=== PATIENT | male | born 1945 | race Caucasian/White ===

== ENCOUNTER 2016-08-11 09:52 | Outpatient (CLI) | payer MEDICARE | END 2016-08-11 09:53 | disposition home or self-care (01) | DX: I73.9 Peripheral vascular disease, unspecified (principal); N18.9 Chronic kidney disease, unspecified; I48.0 Paroxysmal atrial fibrillation; E78.5 Hyperlipidemia, unspecified; E11.9 Type 2 diabetes mellitus without complications; E29.1 Testicular hypofunction; I12.9 Hypertensive chronic kidney disease with stage 1 through stage 4 chronic kidney disease, or unspecified chronic kidney disease ==

== ENCOUNTER 2016-09-15 08:00 | Outpatient (CLI) | payer MEDICARE | END 2016-09-15 23:59 | disposition home or self-care (01) | DX: Z12.5 Encounter for screening for malignant neoplasm of prostate (principal) ==

== ENCOUNTER 2017-01-04 09:05 | Outpatient (CLI) | payer MEDICARE | END 2017-01-04 09:06 | disposition home or self-care (01) | LOC: LAB.F 09:05 | PROVIDERS: ATTEND Family Medicine | DX: I48.0 Paroxysmal atrial fibrillation (principal); Z79.01 Long term (current) use of anticoagulants | CPT/HCPCS: 85610 ==

== ENCOUNTER 2017-02-25 09:38 | Outpatient (CLI) | payer MEDICARE | END 2017-02-25 09:39 | disposition home or self-care (01) | LOC: LAB.F 09:38 | PROVIDERS: ATTEND Family Medicine | DX: I48.0 Paroxysmal atrial fibrillation (principal); Z79.01 Long term (current) use of anticoagulants | CPT/HCPCS: 85610 ==

== ENCOUNTER 2017-04-01 10:51 | Outpatient (CLI) | payer MEDICARE | END 2017-04-01 10:52 | disposition home or self-care (01) | LOC: LAB.F 10:51 | PROVIDERS: ATTEND Physician Assistant Medical | DX: I48.0 Paroxysmal atrial fibrillation (principal); Z79.01 Long term (current) use of anticoagulants | CPT/HCPCS: 85610 ==

== ENCOUNTER 2017-04-29 10:58 | Outpatient (CLI) | payer MEDICARE | END 2017-04-29 10:59 | disposition home or self-care (01) | LOC: LAB.F 10:58 | PROVIDERS: ATTEND Physician Assistant Medical | DX: I48.0 Paroxysmal atrial fibrillation (principal); Z79.01 Long term (current) use of anticoagulants | CPT/HCPCS: 85610 ==

== ENCOUNTER 2017-05-06 13:37 | Outpatient (CLI) | payer MEDICARE | END 2017-05-06 13:38 | disposition home or self-care (01) | LOC: LAB.F 13:37 | PROVIDERS: ATTEND Physician Assistant Medical | DX: I48.0 Paroxysmal atrial fibrillation (principal); Z79.01 Long term (current) use of anticoagulants | CPT/HCPCS: 85610 ==

== ENCOUNTER 2017-07-02 13:53 | Outpatient (CLI) | payer MEDICARE | END 2017-07-02 13:54 | disposition home or self-care (01) | LOC: LAB.F 13:53 | PROVIDERS: ATTEND Family Medicine | DX: I48.91 Unspecified atrial fibrillation (principal); Z79.01 Long term (current) use of anticoagulants | CPT/HCPCS: 85610 ==

== ENCOUNTER 2017-07-22 10:38 | Outpatient (CLI) | payer MEDICARE | END 2017-07-22 10:39 | disposition home or self-care (01) | LOC: SC 10:38 | PROVIDERS: ATTEND Specialist | DX: G47.33 Obstructive sleep apnea (adult) (pediatric) (principal) | CPT/HCPCS: 99214; G0463; 99212 ==

== ENCOUNTER 2017-08-09 11:10 | Outpatient (CLI) | payer MEDICARE, OTHER ==
[2017-08-09 18:53] LABS: ALBUMIN 4.2 g/dL (3.2-5.5); ALBUMIN/GLOBULIN RATIO 1.7 (1.0-2.2); ALKALINE PHOSPHATASE 55 IU/L (42-121); ALT ALANINE AMINOTRANSFERASE 24 IU/L (10-60); AST ASPARTATE AMINOTRANSFERASE 21 IU/L (10-42); BILIRUBIN,TOTAL 0.6 mg/dL (0.2-1.0); BUN - BLOOD UREA NITROGEN 29 mg/dL (6-20); CALCIUM 8.6 mg/dL (8.5-10.3); CARBON DIOXIDE - CO2 23 mmol/L (21-32); CHLORIDE 104 mmol/L (101-111); CHOL/HDL RATIO 3.2 (<5.0); CHOLESTEROL 120 mg/dL; CREATININE 1.7 mg/dL (0.6-1.2); GFR - MDRD 40 (>89); GLUCOSE 80 mg/dL (70-100); HDL CHOLESTEROL 37 mg/dL; LDL CHOLESTEROL,CALCULATED 62 mg/dL; LDL/HDL RATIO 1.7 (<3.6); SODIUM 135 mmol/L (135-145); TOTAL PROTEIN 6.7 g/dL (6.7-8.2); VLDL CHOLESTEROL 21 mg/dL
[2017-08-09 18:59] LABS: BASOPHILS # (AUTO) 0.1 10^3/uL (0.0-0.1); BASOPHILS % (AUTO) 1.1 %; EOSINOPHILS # (AUTO) 0.1 10^3/uL (0.0-0.7); EOSINOPHILS % (AUTO) 1.8 %; LYMPHOCYTES # (AUTO) 1.8 10^3/uL (1.5-3.5); LYMPHOCYTES % (AUTO) 25.3 %; MEAN CORPUSCULAR HGB CONC 32.9 g/dL (32.0-36.0); MEAN CORPUSCULAR VOLUME 94.4 fL (80.0-94.0); MEAN PLATELET VOLUME 8.5 fL (7.4-11.4); MONOCYTES # (AUTO) 0.5 10^3/uL (0.0-1.0); MONOCYTES % (AUTO) 7.2 %; NEUTROPHILS # (AUTO) 4.7 10^3/uL (1.5-6.6); NEUTROPHILS % (AUTO) 64.6 %; PLT - PLATELET COUNT 263 10^3/uL (130-450); RED BLOOD COUNT 4.53 10^6/uL (4.70-6.10); WHITE BLOOD COUNT 7.2 x10^3/uL (4.8-10.8)
[2017-08-09 19:58] LABS: HB2 TOTAL 15.2 g/dL; HEMOGLOBIN A1C 0.8 g/dL
== END 2017-08-09 11:11 | disposition home or self-care (01) ==
LOC: LAB.F 11:10
PROVIDERS: ATTEND Physician Assistant Medical
DX: I48.0 Paroxysmal atrial fibrillation (principal); I10 Essential (primary) hypertension; E11.9 Type 2 diabetes mellitus without complications; Z79.01 Long term (current) use of anticoagulants; E78.5 Hyperlipidemia, unspecified; E29.1 Testicular hypofunction
CPT/HCPCS: 36415; 80053; 80061; 81599; 83036; 83721; 84402; 84403; 85025; 85610

== ENCOUNTER 2017-09-22 09:46 | Outpatient (CLI) | payer MEDICARE, OTHER | END 2017-09-22 09:47 | disposition home or self-care (01) | LOC: LAB.F 09:46 | PROVIDERS: ATTEND Physician Assistant Medical | DX: I48.0 Paroxysmal atrial fibrillation (principal); Z79.01 Long term (current) use of anticoagulants | CPT/HCPCS: 85610 ==

== ENCOUNTER 2017-09-28 08:00 | Outpatient (CLI) | payer MEDICARE, OTHER ==
[2017-09-29 10:41] LABS: ALBUMIN 4.5 g/dL (3.2-5.5); BILIRUBIN,TOTAL 0.8 mg/dL (0.2-1.0); CALCIUM 9.1 mg/dL (8.5-10.3); MAGNESIUM 2.1 mg/dL (1.7-2.8); TOTAL PROTEIN 6.8 g/dL (6.7-8.2)
[2017-09-29 10:56] LABS: THYROID STIMULATING HORMONE 1.09 uIU/mL (0.34-5.60)
[2017-09-29 10:58] LABS: FREE T4 (FREE THYROXINE) 1.32 ng/dL (0.58-1.64)
== END 2017-09-28 08:01 | disposition home or self-care (01) ==
LOC: LAB.F 08:00
PROVIDERS: ATTEND Physician Assistant Medical
DX: I10 Essential (primary) hypertension (principal); R25.1 Tremor, unspecified
CPT/HCPCS: 36415; 80053; 82728; 83735; 84439; 84443; 84481

== ENCOUNTER 2017-09-30 08:00 | Outpatient (CLI) | payer MEDICARE, OTHER | END 2017-09-30 23:59 | disposition home or self-care (01) | LOC: LAB.R 08:00 | PROVIDERS: ATTEND Physician Assistant Medical | DX: L03.031 Cellulitis of right toe (principal) | CPT/HCPCS: 87070; 87205 ==

== ENCOUNTER 2017-10-28 11:03 | Outpatient (CLI) | payer MEDICARE, OTHER | END 2017-10-28 11:04 | disposition home or self-care (01) | LOC: LAB.F 11:03 | PROVIDERS: ATTEND Physician Assistant Medical | DX: I48.0 Paroxysmal atrial fibrillation (principal); Z79.01 Long term (current) use of anticoagulants | CPT/HCPCS: 85610 ==

== ENCOUNTER 2017-11-10 12:41 | Outpatient (CLI) | payer MEDICARE, OTHER | END 2017-11-10 12:42 | disposition home or self-care (01) | LOC: LAB.F 12:41 | PROVIDERS: ATTEND Physician Assistant Medical | DX: I48.0 Paroxysmal atrial fibrillation (principal); Z79.01 Long term (current) use of anticoagulants | CPT/HCPCS: 85610 ==

== ENCOUNTER 2017-12-08 14:18 | Outpatient (CLI) | payer MEDICARE, OTHER | END 2017-12-08 14:19 | disposition home or self-care (01) | LOC: LAB.F 14:18 | PROVIDERS: ATTEND Physician Assistant Medical | DX: I48.0 Paroxysmal atrial fibrillation (principal); Z79.01 Long term (current) use of anticoagulants | CPT/HCPCS: 85610 ==

== ENCOUNTER 2017-12-29 08:00 | Outpatient (CLI) | payer MEDICARE, OTHER | END 2017-12-29 08:01 | LOC: LAB.F 08:00 | PROVIDERS: ATTEND Internal Medicine | DX: I48.0 Paroxysmal atrial fibrillation (principal); Z79.01 Long term (current) use of anticoagulants | CPT/HCPCS: 85610 ==

== ENCOUNTER 2018-02-07 11:56 | Outpatient (CLI) | payer MEDICARE, OTHER | END 2018-02-07 11:57 | disposition home or self-care (01) | LOC: LAB.F 11:56 | PROVIDERS: ATTEND Internal Medicine | DX: I48.0 Paroxysmal atrial fibrillation (principal); Z79.01 Long term (current) use of anticoagulants | CPT/HCPCS: 85610 ==

== ENCOUNTER → 2018-03-22 | Outpatient (CLI) | payer MEDICARE, OTHER | LOC: LAB.F 08:00 | PROVIDERS: ATTEND Internal Medicine | DX: I48.0 Paroxysmal atrial fibrillation (principal); Z79.01 Long term (current) use of anticoagulants | CPT/HCPCS: 85610 ==

== ENCOUNTER 2018-04-26 15:10 | Outpatient (CLI) | payer MEDICARE, OTHER | END 2018-04-26 15:11 | disposition home or self-care (01) | LOC: LAB.F 15:10 | PROVIDERS: ATTEND Internal Medicine | DX: I48.0 Paroxysmal atrial fibrillation (principal); Z79.01 Long term (current) use of anticoagulants | CPT/HCPCS: 85610 ==

== ENCOUNTER 2018-05-23 13:24 | Outpatient (CLI) | payer MEDICARE, OTHER ==
[2018-05-23 17:52] LABS: PT - PROTHROMBIN TIME 63.5 secs (9.9-12.6)
[2018-05-23 18:30] LABS: INR 5.7 (0.8-1.2)
== END 2018-05-23 13:25 | disposition home or self-care (01) ==
LOC: LAB.F 13:24
PROVIDERS: ATTEND Internal Medicine
DX: I48.0 Paroxysmal atrial fibrillation (principal); Z79.01 Long term (current) use of anticoagulants; I80.9 Phlebitis and thrombophlebitis of unspecified site
CPT/HCPCS: 36415; 85610

== ENCOUNTER 2018-05-26 14:05 | Outpatient (CLI) | payer MEDICARE, OTHER | END 2018-05-26 14:06 | disposition home or self-care (01) | LOC: LAB.F 14:05 | PROVIDERS: ATTEND Internal Medicine | DX: I48.0 Paroxysmal atrial fibrillation (principal); Z79.01 Long term (current) use of anticoagulants | CPT/HCPCS: 85610 ==

== ENCOUNTER 2018-06-15 13:33 | Outpatient (CLI) | payer MEDICARE, OTHER ==
[2018-06-15 18:23] LABS: INR 1.4 (0.8-1.2); PT - PROTHROMBIN TIME 15.3 secs (9.9-12.6)
== END 2018-06-15 13:34 | disposition home or self-care (01) ==
LOC: LAB.F 13:33
PROVIDERS: ATTEND Internal Medicine
DX: I48.0 Paroxysmal atrial fibrillation (principal); Z79.01 Long term (current) use of anticoagulants
CPT/HCPCS: 36415; 85610

== ENCOUNTER 2018-07-05 11:16 | Outpatient (CLI) | payer MEDICARE, OTHER | END 2018-07-05 11:17 | disposition home or self-care (01) | LOC: LAB.F 11:16 | PROVIDERS: ATTEND Internal Medicine | DX: I48.0 Paroxysmal atrial fibrillation (principal); Z79.01 Long term (current) use of anticoagulants | CPT/HCPCS: 85610 ==

== ENCOUNTER 2018-07-27 13:35 | Outpatient (CLI) | payer MEDICARE, OTHER | END 2018-07-27 13:36 | disposition home or self-care (01) | LOC: LAB.F 13:35 | PROVIDERS: ATTEND Internal Medicine | DX: I48.0 Paroxysmal atrial fibrillation (principal); Z79.01 Long term (current) use of anticoagulants | CPT/HCPCS: 85610 ==

== ENCOUNTER 2018-08-09 16:13 | Outpatient (CLI) | payer MEDICARE, OTHER | END 2018-08-09 16:14 | disposition EMS.NT | LOC: EMS 16:13 | PROVIDERS: ATTEND Surgery | DX: Z03.89 Encounter for observation for other suspected diseases and conditions ruled out (principal) ==

== ENCOUNTER 2018-08-10 14:31 | Outpatient (CLI) | payer MEDICARE, OTHER ==
[2018-08-10 17:45] LABS: BASOPHILS # (AUTO) 0.1 10^3/uL (0.0-0.1); BASOPHILS % (AUTO) 0.9 %; EOSINOPHILS # (AUTO) 0.1 10^3/uL (0.0-0.7); EOSINOPHILS % (AUTO) 0.7 %; HGB - HEMOGLOBIN 15.7 g/dL (14.0-18.0); LYMPHOCYTES # (AUTO) 1.2 10^3/uL (1.5-3.5); LYMPHOCYTES % (AUTO) 14.2 %; MEAN CORPUSCULAR HGB CONC 33.6 g/dL (32.0-36.0); MEAN CORPUSCULAR VOLUME 95.4 fL (80.0-94.0); MEAN PLATELET VOLUME 8.8 fL (7.4-11.4); MONOCYTES # (AUTO) 0.6 10^3/uL (0.0-1.0); NEUTROPHILS # (AUTO) 6.7 10^3/uL (1.5-6.6); NEUTROPHILS % (AUTO) 77.2 %; PLT - PLATELET COUNT 246 10^3/uL (130-450); RED BLOOD COUNT 4.91 10^6/uL (4.70-6.10); RED CELL DISTRIBUTION WIDTH 13.9 % (12.0-15.0); WHITE BLOOD COUNT 8.7 x10^3/uL (4.8-10.8)
[2018-08-10 18:01] LABS: BUN - BLOOD UREA NITROGEN 28 mg/dL (6-20); CALCIUM 8.8 mg/dL (8.5-10.3); CARBON DIOXIDE - CO2 21 mmol/L (21-32); CHLORIDE 107 mmol/L (101-111); CHOL/HDL RATIO 2.9 (<5.0); CHOLESTEROL 140 mg/dL; CREATININE 1.6 mg/dL (0.6-1.2); GFR - MDRD 43 (>89); GLUCOSE 158 mg/dL (70-100); HDL CHOLESTEROL 49 mg/dL; LDL CHOLESTEROL,CALCULATED 65 mg/dL; LDL/HDL RATIO 1.3 (<3.6); SODIUM 137 mmol/L (135-145); VLDL CHOLESTEROL 26 mg/dL
[2018-08-10 18:30] LABS: HB2 TOTAL 16.8 g/dL; HEMOGLOBIN A1C 0.8 g/dL; HEMOGLOBIN A1C % 6.5 % (4.6-6.2)
== END 2018-08-10 23:59 | disposition home or self-care (01) ==
LOC: LAB.F 14:31
PROVIDERS: ATTEND Physician Assistant Medical
DX: I10 Essential (primary) hypertension (principal); E11.9 Type 2 diabetes mellitus without complications
CPT/HCPCS: 36415; 80048; 80061; 82043; 83036; 83721; 84443; 85025

== ENCOUNTER 2018-08-24 14:44 | Outpatient (CLI) | payer MEDICARE, OTHER ==
[2018-08-24 17:55] LABS: PT - PROTHROMBIN TIME 80.5 secs (9.9-12.6)
[2018-08-24 18:08] LABS: INR 7.3 (0.8-1.2)
== END 2018-08-24 14:45 | disposition home or self-care (01) ==
LOC: LAB.F 14:44
PROVIDERS: ATTEND Internal Medicine
DX: I48.0 Paroxysmal atrial fibrillation (principal); Z79.01 Long term (current) use of anticoagulants; E29.1 Testicular hypofunction
CPT/HCPCS: 36415; 81599; 82040; 84270; 84402; 84403; 85610

== ENCOUNTER 2018-08-25 10:08 | Outpatient (CLI) | payer MEDICARE, OTHER | END 2018-08-25 10:09 | disposition home or self-care (01) | LOC: SC 10:08 | PROVIDERS: ATTEND Nurse Practitioner Family | DX: G47.33 Obstructive sleep apnea (adult) (pediatric) (principal) | CPT/HCPCS: 99214; G0463; 99212 ==

== ENCOUNTER 2018-08-26 13:44 | Outpatient (CLI) | payer MEDICARE, OTHER | END 2018-08-26 13:45 | disposition home or self-care (01) | LOC: LAB.F 13:44 | PROVIDERS: ATTEND Internal Medicine | DX: I48.0 Paroxysmal atrial fibrillation (principal); Z79.01 Long term (current) use of anticoagulants | CPT/HCPCS: 85610 ==

== ENCOUNTER 2018-08-29 12:11 | Outpatient (CLI) | payer MEDICARE, OTHER | END 2018-08-29 12:12 | disposition home or self-care (01) | LOC: LAB.F 12:11 | PROVIDERS: ATTEND Internal Medicine | DX: I48.0 Paroxysmal atrial fibrillation (principal); Z79.01 Long term (current) use of anticoagulants | CPT/HCPCS: 85610 ==

== ENCOUNTER 2018-09-02 12:13 | Outpatient (CLI) | payer MEDICARE, OTHER | END 2018-09-02 23:59 | disposition home or self-care (01) | LOC: LAB.F 12:13 | PROVIDERS: ATTEND Internal Medicine | DX: I48.0 Paroxysmal atrial fibrillation (principal); Z79.01 Long term (current) use of anticoagulants; E29.1 Testicular hypofunction | CPT/HCPCS: 36415; 81599; 84402; 84403; 85610 ==

== ENCOUNTER 2018-09-09 09:30 | Outpatient (CLI) | payer MEDICARE, OTHER | END 2018-09-09 09:31 | disposition home or self-care (01) | LOC: LAB.F 09:30 | PROVIDERS: ATTEND Physician Assistant Medical | DX: I48.0 Paroxysmal atrial fibrillation (principal); Z79.01 Long term (current) use of anticoagulants | CPT/HCPCS: 85610 ==

== ENCOUNTER 2018-10-12 13:36 | Outpatient (CLI) | payer MEDICARE, OTHER | END 2018-10-12 13:37 | disposition home or self-care (01) | LOC: LAB.F 13:36 | PROVIDERS: ATTEND Internal Medicine | DX: I48.0 Paroxysmal atrial fibrillation (principal); Z79.01 Long term (current) use of anticoagulants | CPT/HCPCS: 85610 ==

== ENCOUNTER 2018-10-26 14:20 | Outpatient (CLI) | payer MEDICARE, OTHER | END 2018-10-26 14:21 | disposition home or self-care (01) | LOC: LAB.F 14:20 | PROVIDERS: ATTEND Internal Medicine | DX: I48.0 Paroxysmal atrial fibrillation (principal); Z79.01 Long term (current) use of anticoagulants | CPT/HCPCS: 85610 ==

== ENCOUNTER 2018-10-28 08:00 | Outpatient (CLI) | payer MEDICARE, OTHER | END 2018-10-28 23:59 | disposition home or self-care (01) | LOC: LAB.F 08:00 | PROVIDERS: ATTEND Internal Medicine | DX: I48.0 Paroxysmal atrial fibrillation (principal); Z79.01 Long term (current) use of anticoagulants | CPT/HCPCS: 85610 ==

== ENCOUNTER 2018-11-14 14:55 | Outpatient (CLI) | payer MEDICARE, OTHER | END 2018-11-14 14:56 | disposition home or self-care (01) | LOC: LAB.F 14:55 | PROVIDERS: ATTEND Internal Medicine | DX: I48.0 Paroxysmal atrial fibrillation (principal); Z79.01 Long term (current) use of anticoagulants | CPT/HCPCS: 85610 ==

== ENCOUNTER 2018-11-23 13:53 | Outpatient (CLI) | payer MEDICARE, OTHER | END 2018-11-23 13:54 | disposition home or self-care (01) | LOC: LAB.F 13:53 | PROVIDERS: ATTEND Internal Medicine | DX: I48.0 Paroxysmal atrial fibrillation (principal); Z79.01 Long term (current) use of anticoagulants | CPT/HCPCS: 85610 ==

== ENCOUNTER 2018-12-09 11:51 | Outpatient (CLI) | payer MEDICARE | END 2018-12-09 11:52 | disposition home or self-care (01) | LOC: LAB.F 11:51 | PROVIDERS: ATTEND Physician Assistant Medical | DX: I48.0 Paroxysmal atrial fibrillation (principal); Z79.01 Long term (current) use of anticoagulants | CPT/HCPCS: 85610 ==

== ENCOUNTER 2019-01-16 13:08 | Outpatient (CLI) | payer MEDICARE | END 2019-01-16 13:09 | disposition home or self-care (01) | LOC: LAB.F 13:08 | PROVIDERS: ATTEND Physician Assistant Medical | DX: I48.0 Paroxysmal atrial fibrillation (principal); Z79.01 Long term (current) use of anticoagulants | CPT/HCPCS: 85610 ==

== ENCOUNTER 2019-02-20 11:56 | Outpatient (CLI) | payer MEDICARE | END 2019-02-20 11:57 | disposition home or self-care (01) | LOC: LAB.S 11:56 | PROVIDERS: ATTEND Physician Assistant Medical | DX: I48.0 Paroxysmal atrial fibrillation (principal); Z79.01 Long term (current) use of anticoagulants | CPT/HCPCS: 85610 ==

== ENCOUNTER 2019-03-29 11:46 | Outpatient (CLI) | payer MEDICARE | END 2019-03-29 11:47 | disposition home or self-care (01) | LOC: LAB.S 11:46 | PROVIDERS: ATTEND Physician Assistant Medical | DX: I48.0 Paroxysmal atrial fibrillation (principal); Z79.01 Long term (current) use of anticoagulants | CPT/HCPCS: 85610 ==

== ENCOUNTER 2019-05-04 13:38 | Outpatient (CLI) | payer MEDICARE | END 2019-05-04 13:39 | disposition home or self-care (01) | LOC: LAB.S 13:38 | PROVIDERS: ATTEND Physician Assistant Medical | DX: I48.0 Paroxysmal atrial fibrillation (principal); Z79.01 Long term (current) use of anticoagulants; E29.1 Testicular hypofunction | CPT/HCPCS: 36415; 81599; 84402; 84403; 85610 ==

== ENCOUNTER 2019-05-18 11:36 | Outpatient (CLI) | payer MEDICARE | END 2019-05-18 23:59 | disposition home or self-care (01) | LOC: LAB.S 11:36 | PROVIDERS: ATTEND Physician Assistant Medical | DX: I48.0 Paroxysmal atrial fibrillation (principal); Z79.01 Long term (current) use of anticoagulants; E29.1 Testicular hypofunction | CPT/HCPCS: 36415; 81599; 84402; 84403; 85610 ==

== ENCOUNTER 2019-05-23 14:45 | Outpatient (CLI) | payer MEDICARE | END 2019-05-23 14:46 | disposition home or self-care (01) | LOC: LAB.S 14:45 | PROVIDERS: ATTEND Physician Assistant Medical | DX: I48.0 Paroxysmal atrial fibrillation (principal); Z79.01 Long term (current) use of anticoagulants | CPT/HCPCS: 85610 ==

== ENCOUNTER 2019-06-01 13:52 | Outpatient (CLI) | payer MEDICARE | END 2019-06-01 13:53 | disposition home or self-care (01) | LOC: LAB.S 13:52 | PROVIDERS: ATTEND Physician Assistant Medical | DX: I48.0 Paroxysmal atrial fibrillation (principal); Z79.01 Long term (current) use of anticoagulants | CPT/HCPCS: 85610 ==

== ENCOUNTER 2019-06-08 13:14 | Outpatient (CLI) | payer MEDICARE | END 2019-06-08 13:15 | disposition home or self-care (01) | LOC: LAB.S 13:14 | PROVIDERS: ATTEND Physician Assistant Medical | DX: I48.0 Paroxysmal atrial fibrillation (principal); Z79.01 Long term (current) use of anticoagulants | CPT/HCPCS: 85610 ==

== ENCOUNTER 2019-06-27 13:11 | Outpatient (CLI) | payer MEDICARE | END 2019-06-27 13:12 | disposition home or self-care (01) | LOC: LAB.S 13:11 | PROVIDERS: ATTEND Physician Assistant Medical | DX: I48.0 Paroxysmal atrial fibrillation (principal); Z79.01 Long term (current) use of anticoagulants | CPT/HCPCS: 85610 ==

== ENCOUNTER 2019-07-03 10:55 | Outpatient (CLI) | payer MEDICARE | END 2019-07-03 10:56 | disposition home or self-care (01) | LOC: LAB.S 10:55 | PROVIDERS: ATTEND Physician Assistant Medical | DX: I48.0 Paroxysmal atrial fibrillation (principal); Z79.01 Long term (current) use of anticoagulants | CPT/HCPCS: 85610 ==

== ENCOUNTER 2019-07-11 15:16 | Outpatient (CLI) | payer MEDICARE | END 2019-07-11 15:17 | disposition home or self-care (01) | LOC: LAB.S 15:16 | PROVIDERS: ATTEND Physician Assistant Medical | DX: Z79.01 Long term (current) use of anticoagulants (principal); I48.0 Paroxysmal atrial fibrillation | CPT/HCPCS: 85610 ==

== ENCOUNTER 2019-07-27 11:50 | Outpatient (CLI) | payer MEDICARE ==
[2019-07-27 17:51] LABS: BASOPHILS # (AUTO) 0.1 10^3/uL (0.0-0.1); BASOPHILS % (AUTO) 0.9 %; EOSINOPHILS # (AUTO) 0.1 10^3/uL (0.0-0.7); EOSINOPHILS % (AUTO) 0.9 %; LYMPHOCYTES # (AUTO) 1.5 10^3/uL (1.5-3.5); MEAN CORPUSCULAR HEMOGLOBIN 31.8 pg (27.0-31.0); MEAN CORPUSCULAR HGB CONC 32.1 g/dL (32.0-36.0); MEAN CORPUSCULAR VOLUME 99.2 fL (80.0-94.0); MEAN PLATELET VOLUME 10.4 fL (7.4-11.4); MONOCYTES # (AUTO) 0.5 10^3/uL (0.0-1.0); MONOCYTES % (AUTO) 5.4 %; NEUTROPHILS # (AUTO) 6.3 10^3/uL (1.5-6.6); NEUTROPHILS % (AUTO) 74.4 %; PLT - PLATELET COUNT 266 10^3/uL (130-450); RED BLOOD COUNT 4.71 10^6/uL (4.70-6.10); RED CELL DISTRIBUTION WIDTH 13.4 % (12.0-15.0); WHITE BLOOD COUNT 8.5 x10^3/uL (4.8-10.8)
[2019-07-27 18:10] LABS: HB2 TOTAL 15.5 g/dL; HEMOGLOBIN A1C 0.72 g/dL; HEMOGLOBIN A1C % 6.4 % (4.6-6.2)
[2019-07-27 18:17] LABS: ALBUMIN 4.3 g/dL (3.2-5.5); ALBUMIN/GLOBULIN RATIO 1.9 (1.0-2.2); ALKALINE PHOSPHATASE 44 IU/L (42-121); ALT ALANINE AMINOTRANSFERASE 31 IU/L (10-60); AST ASPARTATE AMINOTRANSFERASE 24 IU/L (10-42); BILIRUBIN,TOTAL 0.8 mg/dL (0.2-1.0); BUN - BLOOD UREA NITROGEN 35 mg/dL (6-20); CALCIUM 8.6 mg/dL (8.5-10.3); CARBON DIOXIDE - CO2 21 mmol/L (21-32); CHLORIDE 108 mmol/L (101-111); CHOL/HDL RATIO 2.8 (<5.0); CHOLESTEROL 115 mg/dL; CREATININE 1.9 mg/dL (0.6-1.2); GFR - MDRD 35 (>89); HDL CHOLESTEROL 41 mg/dL; LDL CHOLESTEROL,CALCULATED 50 mg/dL; LDL/HDL RATIO 1.2 (<3.6); SODIUM 138 mmol/L (135-145); TOTAL PROTEIN 6.6 g/dL (6.7-8.2); VLDL CHOLESTEROL 24 mg/dL
[2019-07-27 18:30] LABS: GLUCOSE 52 mg/dL (70-100)
== END 2019-07-27 12:00 | disposition home or self-care (01) ==
LOC: LAB.S 11:50
PROVIDERS: ATTEND Physician Assistant Medical
DX: I10 Essential (primary) hypertension (principal); I48.0 Paroxysmal atrial fibrillation; E78.5 Hyperlipidemia, unspecified; E11.9 Type 2 diabetes mellitus without complications; Z12.5 Encounter for screening for malignant neoplasm of prostate; Z79.01 Long term (current) use of anticoagulants
CPT/HCPCS: 36415; 80053; 80061; 81599; 83036; 84402; 84403; 85025; 85610; G0103; 83721; 84153; 84270

== ENCOUNTER 2019-08-31 08:00 | Outpatient (CLI) | payer MEDICARE | END 2019-08-31 23:59 | disposition home or self-care (01) | LOC: LAB.S 08:00 | PROVIDERS: ATTEND Physician Assistant Medical | DX: Z79.01 Long term (current) use of anticoagulants (principal); I48.0 Paroxysmal atrial fibrillation | CPT/HCPCS: 85610 ==

== ENCOUNTER 2019-09-27 13:19 | Outpatient (CLI) | payer MEDICARE ==
[2019-09-27 16:55] LABS: BASOPHILS # (AUTO) 0.1 10^3/uL (0.0-0.1); EOSINOPHILS # (AUTO) 0.1 10^3/uL (0.0-0.7); EOSINOPHILS % (AUTO) 1.6 %; HGB - HEMOGLOBIN 13.7 g/dL (14.0-18.0); LYMPHOCYTES # (AUTO) 1.8 10^3/uL (1.5-3.5); LYMPHOCYTES % (AUTO) 23.6 %; MEAN CORPUSCULAR HEMOGLOBIN 32.1 pg (27.0-31.0); MEAN CORPUSCULAR HGB CONC 32.7 g/dL (32.0-36.0); MEAN CORPUSCULAR VOLUME 98.1 fL (80.0-94.0); MEAN PLATELET VOLUME 10.4 fL (7.4-11.4); MONOCYTES # (AUTO) 0.6 10^3/uL (0.0-1.0); MONOCYTES % (AUTO) 8.1 %; NEUTROPHILS % (AUTO) 65.4 %; PLT - PLATELET COUNT 238 10^3/uL (130-450); RED BLOOD COUNT 4.27 10^6/uL (4.70-6.10); RED CELL DISTRIBUTION WIDTH 13.6 % (12.0-15.0); WHITE BLOOD COUNT 7.7 x10^3/uL (4.8-10.8)
[2019-09-27 17:00] LABS: INR 2.7 (0.8-1.2); PT - PROTHROMBIN TIME 28.7 secs (9.9-12.6)
[2019-09-27 17:06] LABS: ALBUMIN 3.7 g/dL (3.2-5.5); CALCIUM 8.3 mg/dL (8.5-10.3); CREATININE 1.6 mg/dL (0.6-1.2); PHOSPHORUS 2.7 mg/dL (2.5-4.6)
== END 2019-09-27 13:20 | disposition home or self-care (01) ==
LOC: LAB.S 13:19
PROVIDERS: ATTEND Internal Medicine Interventional Cardiology
DX: I10 Essential (primary) hypertension (principal); I48.0 Paroxysmal atrial fibrillation
CPT/HCPCS: 36415; 80069; 85025; 85610

== ENCOUNTER 2019-11-28 12:30 | Outpatient (CLI) | payer MEDICARE | END 2019-11-28 12:31 | disposition home or self-care (01) | LOC: LAB 12:30 | PROVIDERS: ATTEND Physician Assistant Medical | DX: I48.0 Paroxysmal atrial fibrillation (principal); Z79.01 Long term (current) use of anticoagulants | CPT/HCPCS: 85610 ==

== ENCOUNTER 2020-01-19 12:44 | Outpatient (CLI) | payer MEDICARE ==
[2020-01-19 20:22] LABS: BASOPHILS # (AUTO) 0.1 10^3/uL (0.0-0.1); BASOPHILS % (AUTO) 1.2 %; EOSINOPHILS # (AUTO) 0.2 10^3/uL (0.0-0.7); EOSINOPHILS % (AUTO) 1.9 %; HGB - HEMOGLOBIN 13.7 g/dL (14.0-18.0); LYMPHOCYTES % (AUTO) 25.2 %; MEAN CORPUSCULAR HEMOGLOBIN 32.5 pg (27.0-31.0); MEAN CORPUSCULAR HGB CONC 32.1 g/dL (32.0-36.0); MEAN CORPUSCULAR VOLUME 101.2 fL (80.0-94.0); MEAN PLATELET VOLUME 10.3 fL (7.4-11.4); MONOCYTES # (AUTO) 0.5 10^3/uL (0.0-1.0); MONOCYTES % (AUTO) 6.7 %; NEUTROPHILS % (AUTO) 64.9 %; PLT - PLATELET COUNT 246 10^3/uL (130-450); RED BLOOD COUNT 4.22 10^6/uL (4.70-6.10); RED CELL DISTRIBUTION WIDTH 13.9 % (12.0-15.0); WHITE BLOOD COUNT 7.8 x10^3/uL (4.8-10.8)
[2020-01-19 20:34] LABS: ALBUMIN 4.1 g/dL (3.2-5.5); CALCIUM 8.3 mg/dL (8.5-10.3); CREATININE 1.7 mg/dL (0.6-1.2); PHOSPHORUS 3.2 mg/dL (2.5-4.6)
== END 2020-01-19 12:45 | disposition home or self-care (01) ==
LOC: LAB.S 12:44
PROVIDERS: ATTEND Physician Assistant
DX: I48.0 Paroxysmal atrial fibrillation (principal); Z79.01 Long term (current) use of anticoagulants
CPT/HCPCS: 36415; 80069; 85025; 85610

== ENCOUNTER 2020-03-25 11:32 | Outpatient (CLI) | payer MEDICARE ==
[2020-03-25 15:17] LABS: BASOPHILS # (AUTO) 0.1 10^3/uL (0.0-0.1); EOSINOPHILS # (AUTO) 0.1 10^3/uL (0.0-0.7); EOSINOPHILS % (AUTO) 1.4 %; HGB - HEMOGLOBIN 14.8 g/dL (14.0-18.0); LYMPHOCYTES % (AUTO) 13.8 %; MEAN CORPUSCULAR HEMOGLOBIN 32.5 pg (27.0-31.0); MEAN CORPUSCULAR VOLUME 98.2 fL (80.0-94.0); MEAN PLATELET VOLUME 10.3 fL (7.4-11.4); MONOCYTES # (AUTO) 0.6 10^3/uL (0.0-1.0); MONOCYTES % (AUTO) 7.8 %; NEUTROPHILS # (AUTO) 5.4 10^3/uL (1.5-6.6); NEUTROPHILS % (AUTO) 75.7 %; PLT - PLATELET COUNT 238 10^3/uL (130-450); RED BLOOD COUNT 4.56 10^6/uL (4.70-6.10); RED CELL DISTRIBUTION WIDTH 12.9 % (12.0-15.0); WHITE BLOOD COUNT 7.2 x10^3/uL (4.8-10.8)
[2020-03-25 15:21] LABS: INR 2.6 (0.8-1.2); PT - PROTHROMBIN TIME 28.5 secs (9.9-12.6)
[2020-03-25 15:44] LABS: CREATININE 1.6 mg/dL (0.6-1.2)
== END 2020-03-25 11:33 | disposition home or self-care (01) ==
LOC: LAB.S 11:32
PROVIDERS: ATTEND Internal Medicine Interventional Cardiology
DX: I48.0 Paroxysmal atrial fibrillation (principal); N18.9 Chronic kidney disease, unspecified; Z20.828 Contact with and (suspected) exposure to other viral communicable diseases
CPT/HCPCS: 36415; 80048; 85025; 85610; U0004; 80069

== ENCOUNTER 2020-04-18 13:55 | Outpatient (CLI) | payer MEDICARE | END 2020-04-18 13:56 | disposition home or self-care (01) | LOC: LAB.S 13:55 | PROVIDERS: ATTEND Physician Assistant | DX: I48.0 Paroxysmal atrial fibrillation (principal); Z79.01 Long term (current) use of anticoagulants | CPT/HCPCS: 85610 ==

== ENCOUNTER 2020-06-24 13:05 | Outpatient (CLI) | payer MEDICARE ==
--- NOTE | 2020-06-24 13:42 | SLEEP CARE CONSULTATION ---
Information from patient questionnaire entered by Hailey Camacho. I have reviewed and concur with the information entered by Hailey Camacho. This document represents the service I personally performed and the decisions made by me, Jacqui Littlejohn ARNP. History of Present Illness Service Date and Time: 06/24/2020 1305 Previous diagnosis: Severe, Obstructive Sleep Apnea-Hypopnea Syndrome AHI: 31.8 (in 2013)(82 in 1993) Reason for follow up: annual (last seen 08/2018) Equipment type: CPAP Equipment obtained from: [facility] (no longer doing supplies) Mask style: Nasal Mask brand: Respironics (Wisp) Backup mask available: No (needs one, will keep one once able to get supplies) Last cushion change: about a year Prior sleep studies: Yes Year and Where: 2013 - [facility], 1993 - [facility] in [place], [place] Type of Sleep Study: Polysomnography HPI additional information: DAMION PIÑA was diagnosed to have severe, AHI 31.8, obstructive sleep apnea-hypopnea syndrome and returned today for CPAP therapy annual follow-up. CPAP Compliance Data - Data Reviewed with Patient Average duration of nightly device use: 3 hr 45 min Compliance rate %: 43.3 (180 days) Current pressure setting (cmH2O): 13 Humidity settin Heated hose settin Average residual AHI: 10.3 Average large leak: 3 min 12 sec Compliance data discussion: He states he is using his machine every day for naps and sleeping. He is getting about 2 hours for naps and 5 hours in bed at night. He noticed that it was losing pressure and changed the filters and it worked better. His machine is 6 years old. Subjective Patient concerns: reports: dry mouth, nose, throat (sometimes get dry mouth and nose if he sleeps with mouth open). denies: aerophagia, mask discomfort, air blowing in eyes (occasionally, but he fixes this), mask leak noise, condensation in mask/hose, nasal congestion, epistaxis, other Observed to snore while using device: No Current pressure setting perceived as: too low On therapy, patient: reports: sleeping better, awakening more refreshed, being more awake and alert during the day, more rested overall. denies: drowsiness while driving Initial Augusta Sleepiness Scale score: 11 (in 2014) Current Augusta Sleepiness Scale score: 5 Allergies and Home Medications Drug allergies reviewed: Yes (NKDA) Home medication list reviewed: Yes (off warfarin) Review of Systems Review of systems same as previous: No (had "Watchman" surgery so he could come off blood thinner) Physical Exam Heart Rate: 85 O2 Saturation: 94 Height: 6 ft 1 in Weight: 250 lb Body Mass Index: 33.0 BMI Classification: Obese Impression and Plan 1. Obstructive Sleep Apnea-Hypopnea Syndrome, severe, with poor treatment compliance and poor apnea control which may be due to machine malfunction. On CPAP therapy, the patient has better sleep quality and is more rested overall. He has been having some issues with dry mouth. Oral dryness can be reduced by adjusting humidity setting higher or heated hose lower or by adjusting both settings. Patient unable to obtain supplies at current DME. Patient was informed that another DME can be used. I will have my pharmacy benefits coordinator inform of DME options. A DWO prescription will then be made. Patient advised to contact this office if further supply problems. The patients CPAP is over 5 years old and of reasonable use. Thus, the CPAP will be updated. The new CPAPs also have a better humidity system which could assist control of patients dryness symptoms. A DWO prescription will be made. Compliance guidelines for new device and follow up discussed. Patient's apnea severity and rationale for treatment to reduce apnea, improve sleep quality and reduce cardiovascular and cerebrovascular events was reviewed. I also reviewed the benefit of consistent device use of CPAP for hypertension and arrhythmia. * Continue CPAP pressure at 13 cmH2O * Update CPAP machine * Transfer DME * Notify me if snoring with mask or feeling that the pressure is too much or too little * Attempt to lose weight * Call this office if any problems using CPAP * Return for follow up in 1-2 months, or sooner if concerns arise Counseling Topics: Spare mask, Weight loss health impact Visit Type: In Office Time Spent with Patient (minutes): 25 Provider Statement: I spent 100% of the Face to Face Visit with the patient with greater than 50% spent counseling the patient and coordination of care.
== END 2020-06-24 13:06 | disposition home or self-care (01) ==
LOC: SC 13:05
PROVIDERS: ATTEND Nurse Practitioner Family
DX: G47.33 Obstructive sleep apnea (adult) (pediatric) (principal); E66.9 Obesity, unspecified; Z68.33 Body mass index [BMI] 33.0-33.9, adult
CPT/HCPCS: 99213; G0463; 99212

== ENCOUNTER 2020-08-09 13:44 | Outpatient (CLI) | payer MEDICARE ==
[2020-08-09 20:53] LABS: BASOPHILS # (AUTO) 0.1 10^3/uL (0.0-0.1); BASOPHILS % (AUTO) 1.3 %; EOSINOPHILS # (AUTO) 0.2 10^3/uL (0.0-0.7); EOSINOPHILS % (AUTO) 2.1 %; HGB - HEMOGLOBIN 13.2 g/dL (14.0-18.0); LYMPHOCYTES # (AUTO) 1.4 10^3/uL (1.5-3.5); LYMPHOCYTES % (AUTO) 20.3 %; MEAN CORPUSCULAR HEMOGLOBIN 32.1 pg (27.0-31.0); MEAN CORPUSCULAR HGB CONC 31.8 g/dL (32.0-36.0); MEAN PLATELET VOLUME 10.6 fL (7.4-11.4); MONOCYTES # (AUTO) 0.5 10^3/uL (0.0-1.0); MONOCYTES % (AUTO) 7.1 %; NEUTROPHILS # (AUTO) 4.8 10^3/uL (1.5-6.6); NEUTROPHILS % (AUTO) 68.9 %; PLT - PLATELET COUNT 241 10^3/uL (130-450); RED BLOOD COUNT 4.11 10^6/uL (4.70-6.10); RED CELL DISTRIBUTION WIDTH 13.1 % (12.0-15.0)
[2020-08-09 21:25] LABS: ALBUMIN 3.9 g/dL (3.2-5.5); ALBUMIN/GLOBULIN RATIO 1.6 (1.0-2.2); ALKALINE PHOSPHATASE 62 IU/L (42-121); ALT ALANINE AMINOTRANSFERASE 23 IU/L (10-60); AST ASPARTATE AMINOTRANSFERASE 18 IU/L (10-42); BILIRUBIN,TOTAL 0.8 mg/dL (0.2-1.0); BUN - BLOOD UREA NITROGEN 33 mg/dL (6-20); CALCIUM 8.3 mg/dL (8.5-10.3); CARBON DIOXIDE - CO2 24 mmol/L (21-32); CHLORIDE 104 mmol/L (101-111); CHOL/HDL RATIO 2.6 (<5.0); CHOLESTEROL 142 mg/dL; CREATININE 1.9 mg/dL (0.6-1.2); GLUCOSE 142 mg/dL (70-100); HDL CHOLESTEROL 54 mg/dL; LDL CHOLESTEROL,CALCULATED 71 mg/dL; LDL/HDL RATIO 1.3 (<3.6); SODIUM 136 mmol/L (135-145); TOTAL PROTEIN 6.3 g/dL (6.7-8.2); VLDL CHOLESTEROL 17 mg/dL
[2020-08-09 21:33] LABS: CREATININE,URINE 53.8 mg/dL; MICROALBUMIN,URINE 81.4 mg/dL (0-300.0)
[2020-08-09 21:46] LABS: HEMOGLOBIN A1c% 7.2 % (4.27-6.07)
--- OUTSIDE RECORDS SUMMARY | 2020-08-14 01:41 | EXTERNAL MEDICAL SUMMARY RPT | Continuity of Care Document ---
: Demographics Phone Unavailable Preferred Language pat Marital Status Unknown Tenriism Affiliation Unknown Race Unknown Ethnic Group Unknown Author Organization [facility] Address [address] [place] [address] Phone Care Team Providers Name Role Phone Bhavana LEMOS, Mariana Unavailable BHAVANA GOODWIN Unavailable Unavailable Problems date description facility 2020-06-28 00:00:00 Essential and other specified [facility] forms of tremor [facility] 2020-06-28 00:00:00 Essential tremor formerly [facility] 2020-06-28 00:00:00 Tobacco use and exposure [facility] 2020-06-28 00:00:00 Little interest or pleasure in [facility] Care doing things? [facility] 2020-06-28 00:00:00 [facility] 2020-06-28 00:00:00 Current every day smoker [facility] 2020-06-28 00:00:00 Tobacco smoking status NHIS [facility] 2020-08-01 00:00:00 MICROALBUMIN/CREAT RATIO [facility] 2020-08-01 00:00:00 TSH WITH REFLEX TO FT4 [facility] 2020-08-01 00:00:00 COMPREHENSIVE METABOLIC PANEL [facility] 2020-08-01 00:00:00 LIPIDS SCREEN formerly [facility] 2020-08-01 00:00:00 HGBA1C formerly [facility] 2020-08-01 00:00:00 CBC W/Diff/Plt formerly [facility] 2020-08-09 13:[address] [facility] 2020-08-09 13:44 ASSISTED (CURRENT) USE OF [facility] ANTICOAGULANTS 2020-08-12 00:00:00 Iron & TIBC formerly [facility] 2020-08-12 00:00:00 Chronic kidney disease, Stage [facility] III (moderate) [facility] 2020-08-12 00:00:00 Long-term (current) use of other [facility] medications [facility] 2020-08-12 00:00:00 Urinalysis with Microscopic Exam [facility] 2020-08-12 00:00:00 VITAMIN B 12 formerly [facility] 2020-08-12 00:00:00 Ferritin formerly [facility] 2020-08-12 00:00:00 Folic Acid formerly [facility] 2020-08-12 00:00:00 Hemoglobin Electrophoresis [facility] 2020-08-12 00:00:00 Transferrin formerly [facility] 2020-08-12 00:00:00 CBC W/Diff/Plt formerly [facility] 2020-08-12 00:00:[address] formerly [facility] 2020-08-12 00:00:00 Anemia, unspecified [facility] 2020-08-12 00:00:00 Chronic kidney disease, stage 3 [facility] (moderate) [facility] 2020-08-12 00:00:00 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 [facility] 2020-08-12 00:00:00 Anemia formerly [facility] 2020-08-12 00:00:00 Chronic kidney disease stage 3 [facility] 2020-08-12 00:00:00 Procedure carried out on subject [facility] Allergies date description facility NO ALLERGY INFORMATION AVAILABLE [facility] Medications date description facility 2020-06-28 00:00:00 null [facility] 2020-06-28 00:00:00 null [facility] 2020-06-28 00:00:00 null [facility] 2020-06-28 00:00:00 null [facility] 2020-06-28 00:00:00 null [facility] 2020-06-28 00:00:00 null [facility] 2020-06-28 00:00:00 TAMSULOSIN HCL [facility] 2020-06-28 00:00:00 ASPIRIN [facility] 2020-06-28 00:00:00 MULTIPLE V[facility]AMINS-MINERALS [facility] 2020-06-28 00:00:00 ASPIRIN [facility] 2020-06-28 00:00:00 TAMSULOSIN HCL [facility] Procedures date description facility 2020-08-01 00:00:00 [facility]BUMIN[facility] date description facility 2020-08-01 00:00:00 [facility] date description facility 2020-08-01 00:00:00 COMPREHENSIVE METABOLIC PANEL [facility] date description facility 2020-08-01 00:00:00 LIPIDS SCREEN [facility] date description facility 2020-08-01 00:00:00 HGBA1C [facility] date description facility 2020-08-01 00:00:00 CBC W/Diff/Plt [facility] date description facility 2020-08-01 00:00:00 [facility] Results Social History date description facility 2020-06-28 00:00:00 Current [facility] Social History date description facility 2020-06-28 00:00:00 Current every day smoker [facility] date description facility [id number]
== END 2020-08-09 13:45 | disposition home or self-care (01) ==
LOC: LAB.S 13:44
PROVIDERS: ATTEND Physician Assistant
DX: E11.9 Type 2 diabetes mellitus without complications (principal); I10 Essential (primary) hypertension; E78.5 Hyperlipidemia, unspecified
CPT/HCPCS: 36415; 80053; 80061; 82043; 82570; 83036; 83721; 84443; 85025

== ENCOUNTER 2020-08-21 13:16 | Outpatient (CLI) | payer MEDICARE ==
--- NOTE | 2020-08-21 14:00 | SLEEP CARE CONSULTATION ---
Information from patient questionnaire entered by Susan Milan. I have reviewed and concur with the information entered by Susan Milan. This document represents the service I personally performed and the decisions made by me, Jacqui Littlejohn ARNP. History of Present Illness Service Date and Time: 08/21/2020 1316 Previous diagnosis: Severe, Obstructive Sleep Apnea-Hypopnea Syndrome AHI: 31.8 (in 2013)(82 in 1993) Reason for follow up: first compliance after device update Equipment type: CPAP Equipment obtained from: [facility] (getting supplies as needed) Mask style: Nasal (Wisp) Mask brand: Respironics Backup mask available: Yes (old mask) Last cushion change: 1 month Prior sleep studies: Yes Year and Where: 2013 - [facility], 1993 - [facility] in [place], [place] Type of Sleep Study: Polysomnography HPI additional information: DAMION PIÑA was diagnosed to have severe, AHI 31.8, obstructiv sleep apnea- hypopnea syndrome and returned today for CPAP therapy first compliance follow- up. CPAP Compliance Data - Data Reviewed with Patient Average duration of nightly device use: 5 h 23 min Compliance rate %: 76.7 Current pressure setting (cmH2O): 13 Humidity settin Heated hose settin Average residual AHI: 4.2 Average large leak: 1 h 12 min Subjective Missed days of use due to: reports: other (Never miss unless long power outage) Patient concerns: reports: nasal congestion (sometimes, nose gets cold when runs out of water), dry mouth, nose, throat (sometimes), other (Concern with heater, need discussion, new machien - need to know how to change filter and adjust heater). denies: aerophagia, mask discomfort, air blowing in eyes, mask leak noise, condensation in mask/hose, epistaxis Observed to snore while using device: No Current pressure setting perceived as: comfortable On therapy, patient: reports: sleeping better, awakening more refreshed, being more awake and alert during the day, more rested overall. denies: drowsiness while driving Initial Mcgrath Sleepiness Scale score: 11 (in 2013) Current [place]ath Sleepiness Scale score: 11 Allergies and Home Medications Drug allergies reviewed: Yes (allergy eye drops) Home medication list reviewed: Yes (started Flomax) Review of Systems Review of systems same as previous: Yes (no changes) Physical Exam Heart Rate: 70 O2 Saturation: 98 Height: 6 ft 1 in Weight: 251 lb Body Mass Index: 33.1 BMI Classification: Obese Impression and Plan 1. Obstructive Sleep Apnea-Hypopnea Syndrome, severe, with fair treatment compliance and fair apnea control. On CPAP therapy, the patient has better sleep quality and is more rested overall. Patient has had some difficulty with his water chamber running out of water and his nose getting cold. He asked to be shown how to change the setting on the machine for the humidity and heated hose. Verbal and demonstrative instructions given to the patient in the office. He was also shown how to change the small filter on the machine since he did not know where the filter was in the machine. He was satisfied with the instructions and voiced understanding. He is happy with his new machine. Patient's apnea severity and rationale for treatment to reduce apnea, improve sleep quality and reduce cardiovascular and cerebrovascular events was reviewed. I also reviewed the benefit of consistent device use of CPAP for hypertension and arrhythmia. * Continue auto CPAP pressure at 13 cmH2O * Notify me if snoring with mask or feeling that the pressure is too much or too little * Call this office if any problems using CPAP * Return for follow up in 1 year, or sooner if concerns arise Counseling Topics: Spare mask Visit Type: In Office Time Spent with Patient (minutes): 35 Provider Statement: I spent 100% of the Face to Face Visit with the patient with greater than 50% spent counseling the patient and coordination of care.
== END 2020-08-21 13:17 | disposition home or self-care (01) ==
LOC: SC 13:16
PROVIDERS: ATTEND Nurse Practitioner Family
DX: G47.33 Obstructive sleep apnea (adult) (pediatric) (principal); E66.9 Obesity, unspecified; Z68.33 Body mass index [BMI] 33.0-33.9, adult
CPT/HCPCS: 99213; G0463; 99212

== ENCOUNTER 2020-09-13 12:05 | Outpatient (CLI) | payer MEDICARE ==
--- NOTE | 2020-09-13 13:21 | CT Report ---
PROCEDURE: Low Dose Lung Cancer Screen INDICATIONS: CURRENT SMOKER TECHNIQUE: Noncontrast low-dose 5 mm thick sections acquired from the pulmonary apices to the posterior costophr enic angles. 7 mm thick coronal and sagittal MIP reformats were then acquired. For radiation dose r eduction, the following was used: automated exposure control, adjustment of mA and/or kV according t o patient size. COMPARISON: None. FINDINGS: Image quality: Excellent. Lungs and pleura: Calcified granuloma, medial anterior left upper lobe, image 72/4. 3 mm pulmonary n odule, lateral extreme right lung base, image 261/4. Incidental note is made of an azygos fissure of the right lung. Mediastinum: Heart size is normal. Mild coronary artery calcifications. Cardiac prosthetic device, i mage 36/3. No pericardial effusion. No mediastinal adenopathy by size criteria. Thoracic aorta and central pulmonary arteries are normal in size. Esophagus is normal in caliber. No hiatal hernia. Bones and chest wall: No suspicious bony lesions. No vertebral body compression fractures. No axil destiny or supraclavicular adenopathy by size criteria. The thyroid is normal in size. Abdomen: Visualized upper abdomen solid organs and bowel loops appear normal in the absence of contr ast. IMPRESSION: 1. LungRads Category 2: Benign appearance or behavior-nodules with a very low likelihood of becoming a clinically active cancer due to size or lack of growth. Benign chronic granulomatous disease, 3 mm noncalcified pulmonary nodule, extreme right lung base. 2. Annual follow-up low-dose noncontrast CT of the chest is recommended for lung cancer screening. 3. Clinically significant or potentially clinically significant findings (nonlung cancer): Mild coron umu artery calcifications. Reviewed by: Fabian Kidd MD on 09/13/2020 1:19 PM PST Approved by: Fabian Kidd MD on 09/13/2020 1:19 PM PST Station ID: [id number]
== END 2020-09-13 12:06 | disposition home or self-care (01) ==
LOC: DI 12:05
PROVIDERS: ATTEND Physician Assistant
DX: Z12.2 Encounter for screening for malignant neoplasm of respiratory organs (principal); F17.210 Nicotine dependence, cigarettes, uncomplicated; R91.1 Solitary pulmonary nodule; J84.10 Pulmonary fibrosis, unspecified

== ENCOUNTER 2021-01-20 08:00 | Outpatient (CLI) | payer MEDICARE | END 2021-01-20 23:59 | disposition home or self-care (01) | LOC: LAB.S 08:00 | PROVIDERS: ATTEND Physician Assistant Medical | DX: L03.116 Cellulitis of left lower limb (principal) | CPT/HCPCS: 87070; 87205 ==

== ENCOUNTER 2021-01-30 13:29 | Outpatient (CLI) | payer MEDICARE ==
[2021-01-30 19:53] LABS: CALCIUM 8.7 mg/dL (8.5-10.3); CREATININE 1.9 mg/dL (0.6-1.2); POTASSIUM 4.3 mmol/L (3.5-5.0)
[2021-01-30 20:12] LABS: CREATININE,URINE 56.4 mg/dL; MICROALBUM/CREATININE RATIO,UR 1186.2 ug/mg (<30.0); MICROALBUMIN,URINE 66.9 mg/dL (0-300.0)
[2021-01-30 20:20] LABS: ESTIMATED AVERAGE GLUCOSE 166 mg/dL (70-100); HEMOGLOBIN A1c% 7.4 % (4.27-6.07)
== END 2021-01-30 13:30 | disposition home or self-care (01) ==
LOC: LAB.S 13:29
PROVIDERS: ATTEND Physician Assistant
DX: E11.22 Type 2 diabetes mellitus with diabetic chronic kidney disease (principal); N18.30 Chronic kidney disease, stage 3 unspecified
CPT/HCPCS: 36415; 80048; 82043; 82570; 83036

== ENCOUNTER 2021-02-15 17:56 | Outpatient (CLI) | payer MEDICARE ==
--- NOTE | 2021-02-16 11:54 | Ultrasound Report ---
PROCEDURE: Duplex Lwr Ext Arterial Bilat INDICATIONS: NON HEALING ULCER TECHNIQUE: Color and pulse Doppler interrogation was performed of both lower extremity arterial systems, with im age documentation. COMPARISON: None FINDINGS: Right lower extremity: Common femoral artery: 158 cm/sec, with triphasic flow. Deep femoral artery: 135 cm/sec, with biphasic flow. Proximal superficial femoral artery: 92 cm/sec, with monophasic flow. Mid superficial femoral artery: 90 cm/sec, with monophasic flow. Distal superficial femoral artery: 139 cm/sec, with monophasic flow. Popliteal artery: 53 cm/sec, with monophasic flow. Posterior tibial artery: 85 cm/sec, with monophasic flow. Anterior tibial artery/dorsalis pedis: 90 cm/sec, with monophasic flow. Jimenez-scale imaging description: Moderate sclerotic plaque Left lower extremity: Common femoral artery: 132 cm/sec, with triphasic flow. Deep femoral artery: 178 cm/sec, with triphasic flow. Proximal superficial femoral artery: 140 cm/sec, with monophasic flow. Mid superficial femoral artery: 141 cm/sec, with monophasic flow. Distal superficial femoral artery: 110 cm/sec, with monophasic flow. Popliteal artery: 96 cm/sec, with monophasic flow. Posterior tibial artery: 82 cm/sec, with monophasic flow. Anterior tibial artery/dorsalis pedis: 20 cm/sec, with monophasic flow. Jimenez-scale imaging description: Moderate sclerotic plaque Other: Soft tissue bilobed cyst in the medial right knee measures 2.6 x 1.2 by 1.7 cm and 3.5 x 0.7 x 1.9 cm. IMPRESSION: 1. Velocities and waveforms are consistent with bilateral atherosclerotic peripheral vascular disease without occlusion. Probable bilateral stenosis in the proximal SFA could be confirmed with CT angiog rosa Reviewed by: Maury Lugo MD on 02/16/2021 10:52 AM IVONNE Approved by: Maury Lugo MD on 02/16/2021 10:52 AM IVONNE Station ID: [id number]
== END 2021-02-15 17:57 | disposition home or self-care (01) ==
LOC: DI 17:56
PROVIDERS: ATTEND Nurse Practitioner
DX: S91.302A Unspecified open wound, left foot, initial encounter (principal)
CPT/HCPCS: 93925

== ENCOUNTER 2021-04-09 12:11 | Outpatient (CLI) | payer MEDICARE | END 2021-04-09 12:12 | disposition EMS.NT | LOC: EMS 12:11 | DX: R41.0 Disorientation, unspecified (principal) ==

== ENCOUNTER 2021-05-13 11:36 | Outpatient (CLI) | payer MEDICARE ==
--- NOTE | 2021-05-13 12:09 | XRAY Report ---
PROCEDURE: Foot 3 View RT INDICATIONS: CHRONIC LOWER EXTREMITY ULCER TECHNIQUE: 3 views of the foot were acquired. COMPARISON: None. FINDINGS: BONES: No acute, displaced fracture or dislocation. SOFT TISSUES: Diffuse edema. Vascular calcifications are noted IMPRESSION: 1.No acute osseous abnormality. Reviewed by: Ghulam Garces MD on 05/13/2021 12:08 PM PDT Approved by: Ghulam Garces MD on 05/13/2021 12:08 PM PDT Station ID: [id number]
== END 2021-05-13 11:37 | disposition home or self-care (01) ==
LOC: DI.S 11:36
PROVIDERS: ATTEND Nurse Practitioner
DX: L97.912 Non-pressure chronic ulcer of unspecified part of right lower leg with fat layer exposed (principal); L97.921 Non-pressure chronic ulcer of unspecified part of left lower leg limited to breakdown of skin; S81.802A Unspecified open wound, left lower leg, initial encounter; I87.2 Venous insufficiency (chronic) (peripheral); L89.893 Pressure ulcer of other site, stage 3

== ENCOUNTER 2021-07-04 12:29 | Outpatient (CLI) | payer MEDICARE ==
[2021-07-04 15:20] LABS: BASOPHILS # (AUTO) 0.1 10^3/uL (0.0-0.1); EOSINOPHILS # (AUTO) 0.1 10^3/uL (0.0-0.7); EOSINOPHILS % (AUTO) 1.6 %; HGB - HEMOGLOBIN 10.7 g/dL (14.0-18.0); LYMPHOCYTES # (AUTO) 1.4 10^3/uL (1.5-3.5); LYMPHOCYTES % (AUTO) 19.9 %; MEAN CORPUSCULAR HEMOGLOBIN 31.8 pg (27.0-31.0); MEAN CORPUSCULAR HGB CONC 32.4 g/dL (32.0-36.0); MEAN CORPUSCULAR VOLUME 97.9 fL (80.0-94.0); MEAN PLATELET VOLUME 9.9 fL (7.4-11.4); MONOCYTES # (AUTO) 0.6 10^3/uL (0.0-1.0); MONOCYTES % (AUTO) 8.9 %; NEUTROPHILS # (AUTO) 4.9 10^3/uL (1.5-6.6); NEUTROPHILS % (AUTO) 68.3 %; PLT - PLATELET COUNT 276 10^3/uL (130-450); RED BLOOD COUNT 3.37 10^6/uL (4.70-6.10); WHITE BLOOD COUNT 7.1 x10^3/uL (4.8-10.8)
[2021-07-04 15:45] LABS: ALBUMIN 3.8 g/dL (3.2-5.5); ALBUMIN/GLOBULIN RATIO 1.4 (1.0-2.2); BILIRUBIN,TOTAL 0.5 mg/dL (0.2-1.0); POTASSIUM 4.8 mmol/L (3.5-5.0); TOTAL PROTEIN 6.5 g/dL (6.7-8.2)
[2021-07-04 21:41] LABS: ESTIMATED AVERAGE GLUCOSE 157 mg/dL (70-100); HEMOGLOBIN A1c% 7.1 % (4.27-6.07)
== END 2021-07-04 12:30 | disposition home or self-care (01) ==
LOC: LAB.S 12:29
PROVIDERS: ATTEND Internal Medicine
DX: I10 Essential (primary) hypertension (principal); E11.9 Type 2 diabetes mellitus without complications
CPT/HCPCS: 36415; 80053; 83036; 85025

== ENCOUNTER 2021-07-15 11:46 | Outpatient (CLI) | payer MEDICARE ==
--- NOTE | 2021-07-15 17:31 | XRAY Report ---
PROCEDURE: Foot 3 View LT INDICATIONS: LEFT FOOT TECHNIQUE: 3 views of the foot were acquired. COMPARISON: 05/13/2021 FINDINGS: Bones: No fractures or dislocations. No suspicious bony lesions. There are degenerative changes of the interphalangeal joints and the great toe MTP joint. No erosions. There is an area of cortical de struction of the lateral aspect of the middle phalanx of the fourth toe consistent with osteomyelitis . Soft tissues: No tibiotalar joint effusion. Achilles tendon appears normal. IMPRESSION: Osteomyelitis of the lateral aspect of the middle phalanx of the fourth toe. Reviewed by: Rivera Aaron on 07/15/2021 5:30 PM PST Approved by: Rivera Aaron on 07/15/2021 5:30 PM PST Station ID: [id number]
== END 2021-07-15 11:47 | disposition home or self-care (01) ==
LOC: DI.S 11:46
PROVIDERS: ATTEND Nurse Practitioner
DX: E11.69 Type 2 diabetes mellitus with other specified complication (principal); G61.81 Chronic inflammatory demyelinating polyneuritis; L03.90 Cellulitis, unspecified; M86.9 Osteomyelitis, unspecified

== ENCOUNTER 2021-07-24 12:21 | Outpatient (CLI) | payer MEDICARE ==
[2021-07-24] MEDS ORDERED: IOPAMIDOL-300 100 ML VIAL ONE (12:45)
--- NOTE | 2021-07-24 15:50 | CT Report ---
PROCEDURE: ANGIO ABD RUNOFF W/WO - B/L INDICATIONS: SMOKING GREATER THE 30 PACK YEARS CONTRAST: IV CONTRAST: Isovue 300 ml: 125 PO CONTRAST: *NO PO CONTRAST TECHNIQUE: After the administration of intravenous contrast, 2 and 5 mm sections acquired from T12 to the feet, with optional delayed image acquisition from the knees to the feet. 3-dimensional maximum intensity projection (MIP) coronal and sagittal reformats, and/or 3-dimensional volume rendering reformatting w as then performed. For radiation dose reduction, the following was used: automated exposure control , adjustment of mA and/or kV according to patient size. COMPARISON: None. FINDINGS: Image quality: Excellent. Extravascular tissues: Lung bases are clear. Heart size is normal. Liver and spleen are normal in size and enhancement. Gallbladder is grossly unremarkable Biliary system is non dilated. Pancreas enhances normally. No adrenal nodules. Kidneys are normal in size and enhancement, without hydronep hrosis. Non opacified bowel loops demonstrate normal wall thickness and enhancement. No free fluid or air. No retroperitoneal or mesenteric adenopathy. 32 mm diameter fat containing umbilical hernia. Bladder wall thickness is normal. No inguinal hernias or adenopathy. No suspicious bony lesions. No vertebral body compression fractures. Abdominal aorta: Mild diffuse calcific plaque, causing minimal diffuse stenosis. No aneurysm nor dis section. Renal and mesenteric arteries: There are 2 right and 2 left renal arteries, the superior of which are dominant, and demonstrate mild calcific origin stenoses. The inferior renal arteries bilaterally are accessory and demonstrate mild origin stenoses. Moderate origin stenosis of the celiac artery. Mild origin stenosis of the superior mesenteric artery. Moderate origin stenosis of the inferior mesenteri c artery. Right lower extremity: Common, internal, and extra iliac arteries demonstrate mild multifocal stenos es. Common, profunda, and superficial femoral arteries are mildly diffusely done on 8. Superimposed h igh-grade focal stenosis within the mid superficial femoral artery. High-grade focal stenosis within the distal superficial femoral artery. Above and below knee popliteal arteries demonstrate mild diffu se calcific stenosis. Anterior tibial artery, tibioperoneal trunk, peroneal and posterior tibial negro zev are not well seen secondary to suboptimal opacification and vascular calcification. Left lower extremity: Common, internal, and extra iliac arteries demonstrate mild multifocal stenose s. Common, profunda, and superficial femoral arteries are patent. Superficial femoral artery demonstr ates mild diffuse stenosis. Above and below knee popliteal artery is mildly diffusely stenotic. Anter ior tibial artery, tibioperoneal trunk, peroneal and posterior tibial arteries are not well seen seco ndary to suboptimal vascular opacification and calcifications. There appears to be intact flow within the peroneal artery to its normal terminus. IMPRESSION: 1. No significant inflow stenosis bilaterally. 2. High-grade right outflow stenoses. No significant left-sided outflow stenosis. 3. Suboptimal dilation of the runoff vessels bilaterally. 4. Fat-containing umbilical hernia. Reviewed by: Xavier Calderon MD on 07/24/2021 3:49 PM PST Approved by: Xavier Calderon MD on 07/24/2021 3:49 PM PST Station ID: [id number]
[2021-07-24] MEDS ORDERED: IOPAMIDOL-300 100 ML VIAL IVP ONE (19:04)
== END 2021-07-24 12:22 | disposition home or self-care (01) ==
LOC: DI 12:21
PROVIDERS: ATTEND Internal Medicine
DX: F17.210 Nicotine dependence, cigarettes, uncomplicated (principal); K42.9 Umbilical hernia without obstruction or gangrene; I70.201 Unspecified atherosclerosis of native arteries of extremities, right leg
CPT/HCPCS: 75635; Q9967

== ENCOUNTER 2021-10-19 12:12 | Outpatient (CLI) | payer MEDICARE ==
[2021-10-19 17:58] LABS: ALBUMIN 3.7 g/dL (3.2-5.5); ALBUMIN/GLOBULIN RATIO 1.3 (1.0-2.2); BILIRUBIN,TOTAL 0.4 mg/dL (0.2-1.0); CALCIUM 8.8 mg/dL (8.5-10.3); POTASSIUM 5.3 mmol/L (3.5-5.0); TOTAL PROTEIN 6.5 g/dL (6.7-8.2)
[2021-10-20 12:57] LABS: ESTIMATED AVERAGE GLUCOSE 166 mg/dL (70-100); HEMOGLOBIN A1c% 7.4 % (4.27-6.07)
== END 2021-10-19 12:13 | disposition home or self-care (01) ==
LOC: LAB.S 12:12
PROVIDERS: ATTEND Internal Medicine
DX: F17.210 Nicotine dependence, cigarettes, uncomplicated (principal); E11.9 Type 2 diabetes mellitus without complications
CPT/HCPCS: 36415; 80053; 83036

== ENCOUNTER 2023-01-01 03:15 | Outpatient (CLI) | payer MEDICARE | END 2023-01-01 23:59 | disposition critical access hospital (66) | LOC: EMS 03:15 | DX: R53.1 Weakness (principal); R11.2 Nausea with vomiting, unspecified; R19.7 Diarrhea, unspecified; R51.9 Headache, unspecified | CPT/HCPCS: A0425; A0427 ==

== ENCOUNTER 2023-01-01 03:51 | Emergency (ER) | payer MEDICARE ==
[2023-01-01] MEDS ORDERED: SODIUM CHLORIDE 0.9% 1,000 ML IV STA (04:00)
[2023-01-01] MEDS ORDERED: ONDANSETRON 4 MG/2 ML VIAL IVP STA (04:00)
--- NOTE | 2023-01-01 04:00 | ED Physician Documentation ---
History of Present Illness - Stated complaint Stated Complaint: GLF, WEAKNESS, HEADACHE - History obtained from History obtained from: Patient, EMS - Additonal information Additional information: 77yM presents s/p fall going from bed to bathroom. patient had been experiencing n/v nbnb and diarrhea all day since noon and was feeling weak when he fell to the floor, hitting his head on a metal fan on ground of carpeted floor. denies LOC. denies pain on initial history. Review of Systems Constitutional: reports: Chills, Myalgias, Fatigue. denies: Fever GI: reports: Nausea, Vomiting, Diarrhea : denies: Dysuria Musculoskeletal: reports: Back pain Neurologic: reports: Generalized weakness, Head injury. denies: LOC PD PAST MEDICAL HISTORY - Past Medical History Cardiovascular: Peripheral Vascular Disease, Atrial fibrillation Respiratory: Asthma, Sleep apnea, CPAP use Neuro: Peripheral neuropathy, Tremors Endocrine/Autoimmune: Type 2 diabetes GI: Hiatal hernia : Benign prostate hypertrophy Psych: Depression Derm: Eczema - Past Surgical History General: Colonoscopy, Other HEENT: Tonsil/Adenoidectomy - Present Medications Home Medications: Ambulatory Orders Medication Instructions Recorded Confirmed Aspirin [Bobo] 0.5 tab PO DAILY 02/05/21 08/13/22 B-Complex with Vitamin C [Super B 1 tab PO DAILY 02/05/21 08/13/22 Complex-Vitamin C] Carvedilol [Coreg] 1 tab PO QPM 02/05/21 08/13/22 Carvedilol [Coreg] 2 tab PO QDBREAKFAST 02/05/21 08/13/22 Cholecalciferol [Vitamin D3] 1,000 units PO DAILY 02/05/21 08/13/22 Glimepiride 1 mg PO BID 02/05/21 08/13/22 Glucosamine/D3/Boswellia Lucie 3 tab PO DAILY 02/05/21 08/13/22 [Glucosamine Complex-Vit D3 Cpt] Insulin Glargine [Lantus Solostar] 30 - 32 units SQ DAILY 02/05/21 08/13/22 Levocetirizine Dihydrochloride 1 tab PO DAILY 02/05/21 08/13/22 Lisinopril/Hydrochlorothiazide 2 tab PO DAILY 02/05/21 08/13/22 [Zestoretic 20-12.5 mg Tablet] Lovastatin 2 tab PO QPM 02/05/21 08/13/22 Metformin HCl [Glucophage] 1 tab PO QDBREAKFAST 02/05/21 08/13/22 Mometasone Furoate/Dimethicone 1 applic TOP BID PRN 02/05/21 08/13/22 [Quinixil 0.1% Cream-5% Crm Kit] Mupirocin 2% Oint [Bactroban 2% 1 applic TOP DAILY PRN 02/05/21 10/03/21 Oint] Tamsulosin HCl [Flomax] 2 cap PO DAILY 02/05/21 08/13/22 Amox/Clav 875/125 [Augmentin 1 each PO Q12H #20 tablet 08/06/21 08/13/22 875/125 Tab] Amox/Clav 875/125 [Augmentin 1 each PO Q12H 7 Days #14 tablet 09/28/22 875/125 Tab] levoFLOXacin [Levofloxacin] 750 mg PO DAILY 7 Days #7 tablet 10/02/22 levoFLOXacin [Levofloxacin] 500 mg PO DAILY 7 Days #7 tablet 10/09/22 Ondansetron Odt [Zofran Odt] 4 mg TL Q6H PRN #10 tablet 01/01/23 - Allergies Allergies/Adverse Reactions: Allergies Allergy/AdvReac Type Severity Reaction Status Date / Time No Known Drug Allergies Allergy Verified 01/01/23 04:02 PD ED PE NORMAL - Vitals Vital signs reviewed: Yes - General General: Alert and oriented X 3, No acute distress, Well developed/nourished - HEENT HEENT: Atraumatic, PERRL, EOMI - Neck Neck: No bony TTP, Other (soft c collar in place) - Cardiac Cardiac: RRR - Respiratory Respiratory: No respiratory distress, Clear bilaterally - Abdomen Abdomen: Non tender, Non distended, Other (diffuse discomfort to palpation. reducible umbilical hernia) - Back Back: Other (thoracic ttp. nontender to L or s spine) - Derm Derm: Normal color, Warm and dry - Extremities Extremities: No deformity - Neuro Neuro: No motor deficit, No sensory deficit Eye Opening: Spontaneous Motor: Obeys Commands Verbal: Oriented GCS Score: 15 - Psych Psych: Normal mood, Normal affect Results - Vitals Vitals: Vital Signs - 24 hr 01/01/23 01/01/23 01/01/23 03:57 05:32 06:00 Temperature 37.5 C Heart Rate 88 86 84 Respiratory 19 16 16 Rate Blood Pressure 201/124 H 213/85 H 182/70 H O2 Saturation 94 97 100 Oxygen O2 Source Room air - Labs Labs: Laboratory Tests 01/01/23 01/01/23 01/01/23 04:02 04:02 05:52 WBC 7.4 RBC 3.70 L Hgb 11.2 L Hct 34.8 L MCV 94.1 H MCH 30.3 MCHC 32.2 RDW 13.6 Plt Count 199 MPV 9.8 Neut # (Auto) 6.1 Lymph # (Auto) 0.6 L [place] # (Auto) 0.7 Eos # (Auto) 0.0 Baso # (Auto) 0.1 Absolute Nucleated RBC 0.00 Nucleated RBC % 0.0 Sodium 134 L Potassium 3.8 Chloride 105 Carbon Dioxide 20 L Anion Gap 9.0 BUN 36 H Creatinine 2.4 H Estimated GFR (MDRD) 26 L Glucose 147 H Calcium 8.2 L Total Bilirubin 0.5 AST 11 ALT 13 Alkaline Phosphatase 75 Total Protein 6.6 L Albumin 3.6 Globulin 3.0 Albumin/Globulin Ratio 1.2 Lipase 24 Urine Color YELLOW Urine Clarity CLEAR Urine pH 6.0 Ur Specific [place] 1.020 Urine Protein 100 H Urine Glucose (UA) 250 H Urine Ketones NEGATIVE Urine Occult Blood SMALL H Urine Nitrite NEGATIVE Urine Bilirubin NEGATIVE Urine Urobilinogen 0.2 (NORMAL) Ur Leukocyte Esterase NEGATIVE Urine RBC 0-5 Urine WBC 0-3 Ur Squamous Epith Cells RARE Squamous Urine Bacteria None Seen Ur Microscopic Review INDICATED Urine Culture Comments NOT INDICATED PD Medical Decision Making - ED course ED course: 77yM presents s/p fall with HT but no LOC. also with n/v/d earlier in day. Patient was evaluated by MD at 3:55 AM. soft collar placed by EMS. patient declined c collar. ABCs intact on primary survey. secondary survey revealed some thoracic spine tenderness and abdominal discomfort to palpation therefore CT head/c spine, CAP was ordered. CXR and pelvic xray waived given normal breath sounds and no physical exam findings concerning for pelvic fracture. plan to f/u lab and CT results. CBC with stable chronic anemia. abdominal panel remarkable for worsening renal function with cre 2.4 and elevated BUN:cre ratio concerning for mild to moderate dehydration. 1 L IVF administered. C collar cleared at time of CT report with negative findings on cervical ct. plan to f/u outpatient with pcp.return precautions given. Departure - Departure Clinical Impression: Fall, Nausea and vomiting, Diarrhea Condition: Stable Instructions: ED Diarrhea Viral Prescriptions: Ondansetron Odt [Zofran Odt] 4 mg TL Q6H PRN #10 tablet PRN Reason: Nausea / Vomiting Comments: Mr. Sams was seen in the emergency department after a fall and had a Scan of his head, cervical spine, chest abdomen and pelvis without any evidence of trauma. He does have some dwindling kidney function and should follow-up with his primary care provider about this. He needs to stay really well-hydrated w hile he is feeling ill. Zofran was sent electronically to [facility] in [place]. Please return to the emergency department if he has any new or worsening symptoms or you have other concerns.
[2023-01-01 04:09] LABS: BASOPHILS # (AUTO) 0.1 10^3/uL (0.0-0.1); BASOPHILS % (AUTO) 0.8 %; EOSINOPHILS % (AUTO) 0.3 %; HCT - HEMATOCRIT 34.8 % (42.0-52.0); HGB - HEMOGLOBIN 11.2 g/dL (14.0-18.0); LYMPHOCYTES # (AUTO) 0.6 10^3/uL (1.5-3.5); MEAN CORPUSCULAR HEMOGLOBIN 30.3 pg (27.0-31.0); MEAN CORPUSCULAR HGB CONC 32.2 g/dL (32.0-36.0); MEAN CORPUSCULAR VOLUME 94.1 fL (80.0-94.0); MEAN PLATELET VOLUME 9.8 fL (7.4-11.4); MONOCYTES # (AUTO) 0.7 10^3/uL (0.0-1.0); MONOCYTES % (AUTO) 8.9 %; NEUTROPHILS # (AUTO) 6.1 10^3/uL (1.5-6.6); NEUTROPHILS % (AUTO) 81.6 %; PLT - PLATELET COUNT 199 10^3/uL (130-450); RED CELL DISTRIBUTION WIDTH 13.6 % (12.0-15.0); WHITE BLOOD COUNT 7.4 x10^3/uL (4.8-10.8)
[2023-01-01 04:22] LABS: ALBUMIN 3.6 g/dL (3.2-5.5); ALBUMIN/GLOBULIN RATIO 1.2 (1.0-2.2); BILIRUBIN,TOTAL 0.5 mg/dL (0.2-1.0); CALCIUM 8.2 mg/dL (8.5-10.3); CREATININE 2.4 mg/dL (0.6-1.2); POTASSIUM 3.8 mmol/L (3.5-5.0); TOTAL PROTEIN 6.6 g/dL (6.7-8.2)
[2023-01-01 06:05] LABS: BILIRUBIN,URINE NEGATIVE (NEGATIVE); GLUCOSE, URINE (UA) 250 mg/dL (NEGATIVE); KETONES,URINE (UA) NEGATIVE (NEGATIVE); LEUKOCYTE ESTERASE, URINE NEGATIVE (NEGATIVE); NITRITE,URINE NEGATIVE (NEGATIVE); OCCULT BLOOD,URINE SMALL (NEGATIVE); PROTEIN,URINE 100 mg/dL (NEGATIVE); UROBILINOGEN,URINE 0.2 (NORMAL) E.U./dL (NORMAL)
[2023-01-01 06:09] LABS: CLARITY,URINE CLEAR (CLEAR)
[2023-01-01 06:15] LABS: BACTERIA,URINE None Seen /HPF (None Seen); RBC,URINE 0-5 /HPF (0-5); SQUAMOUS EPITHELIAL CELL,UR RARE Squamous (<= Few); WBC,URINE 0-3 /HPF (0-3)
--- NOTE | 2023-01-01 07:24 | CT Report ---
PROCEDURE: HEAD WO INDICATIONS: +HT TECHNIQUE: Noncontrast 4.5 mm thick angled axial sections acquired from the foramen magnum to the vertex. For r adiation dose reduction, the following was used: automated exposure control, adjustment of mA and/or kV according to patient size. COMPARISON: None. FINDINGS: Image quality: Excellent. CSF spaces: Basal cisterns are patent. No extra-axial fluid collections. Ventricles are normal in size and shape. Brain: Moderate cerebral volume loss. Mild periventricular white matter chronic small vessel ischemi c changes. No midline shift. No intracranial masses or hemorrhage. Jimenez-white matter interface is n ormal. Skull and face: Calvarium and visualized facial bones are intact, without suspicious lesions. Sinuses: Visualized sinuses and mastoids are clear. IMPRESSION: No acute intracranial abnormality. No significant discrepancy with the preliminary interpretation. Reviewed by: Dalia Hale MD on 01/01/2023 7:23 AM PDT Approved by: Dalia Hale MD on 01/01/2023 7:23 AM PDT Station ID: [id number]
--- NOTE | 2023-01-01 07:29 | CT Report ---
PROCEDURE: CERVICAL SPINE WO INDICATIONS: fall, +HT TECHNIQUE: Noncontrast 3 mm thick sections acquired from the skull base to the T4 level. Sagittal and coronal r eformats were then constructed. For radiation dose reduction, the following was used: automated exp osure control, adjustment of mA and/or kV according to patient size. COMPARISON: None. FINDINGS: Image quality: Excellent. Bones: No fractures or dislocations. Degenerative disc disease, severe at C5-C6, moderate at C6-C7. Bilateral facet arthropathy, most pronounced at C3-C4 and C4-C5 on the right. Visualized superior ri bs are intact. Soft tissues: Prevertebral soft tissues are normal in thickness. No paravertebral hematomas. No ap ical pneumothoraces. IMPRESSION: 1. No cervical spine fractures. 2. Degenerative changes as described. No significant discrepancy with the preliminary interpretation. Reviewed by: Dalia Hale MD on 01/01/2023 7:27 AM PDT Approved by: Dalia Hale MD on 01/01/2023 7:27 AM PDT Station ID: [id number]
--- NOTE | 2023-01-01 08:08 | CT Report ---
PROCEDURE: CHEST WO INDICATIONS: thoracic pain TECHNIQUE: Noncontrast 1mm axial images were acquired from the pulmonary apices to the posterior costophrenic an gles. Axial 5 mm soft tissue kernel reconstructions were performed as well as 8 mm axial MIP and cor onal and sagittal 5 mm reformations. For radiation dose reduction, the following was used: automate d exposure control, adjustment of mA and/or kV according to patient size. COMPARISON: CT chest dated 09/13/2020 FINDINGS: Image quality: Excellent. Lungs and pleura: No consolidation. No pleural effusions. No pneumothorax. No suspicious pulmonary n odules which require follow up. Mild dependent atelectasis in posterior aspect of the bilateral lung graf are seen. Azygos lobe is incidentally noted which is a normal variant. Mediastinum: Heart size is enlarged. No pericardial effusions. No mediastinal adenopathy by size crit eria. No large vessel abnormality. Mild atherosclerotic calcifications are noted in coronary vessels and thoracic aorta. Chest wall and lower neck: Thyroid is unremarkable. No axillary or supraclavicular adenopathy by size . Bones: No aggressive osseous abnormality. Degenerative disc disease throughout thoracic spine is seen . Upper Abdomen: Unremarkable. IMPRESSION: 1. Mild dependent atelectasis in posterior aspect of bilateral lung graf. Bilateral lungs are other barrera clear. 2. Cardiomegaly, no pericardial effusion. No mediastinal or hilar lymphadenopathy. Mild atherosclerot ic calcifications in coronary vessels and thoracic aorta. No significant discrepancies from preliminary reading. Reviewed by: Sushil Minor MD on 01/01/2023 8:07 AM PDT Approved by: Sushil Minor MD on 01/01/2023 8:07 AM PDT Station ID: [id number]
--- NOTE | 2023-01-01 08:12 | CT Report ---
PROCEDURE: ABDOMEN/PELVIS WO INDICATIONS: abd pain TECHNIQUE: Noncontrast 5 mm thick sections acquired from the diaphragms to the symphysis. 5 mm coronal and sagi ttal reformats were then performed. For radiation dose reduction, the following was used: automated exposure control, adjustment of mA and/or kV according to patient size. COMPARISON: None. FINDINGS: Image quality: Excellent. Lung bases and heart: Mild bibasilar dependent atelectasis is seen. Heart size is enlarged, and no pe ricardial effusion. Liver: No solid mass. Gallbladder and biliary tree: The gallbladder is within normal limits. No biliary ductal dilatation. Spleen: No splenomegaly. Pancreas: No pancreatic ductal dilation. Adrenals: No adrenal nodule. Kidneys and ureters: No hydronephrosis. No renal cystic lesion which requires follow up. No solid mas s. Vascular calcifications versus nonobstructing renal calculi are seen in bilateral kidneys. Nonspec ific mild bilateral perinephric fat stranding is seen. Bowel and peritoneum: There is a small hiatal hernia. Questionable gastric wall thickening versus und er distention is noted in proximal stomach. There is no small bowel wall thickening or distention. No colonic wall thickening or mesenteric fat stranding. No abscess collection. No free fluid or free ai r. Lymph nodes: No central or retroperitoneal adenopathy. Vessels: No infrarenal aortic aneurysm. Mild atherosclerotic calcifications throughout abdominal aort a is seen. PELVIS Reproductive organs: Unremarkable. Bladder: No abnormal wall thickening, accounting for underdistension. Pelvic lymph nodes: No pelvic adenopathy by size criteria. Bones: No aggressive osseous abnormality. Degenerative disc disease throughout lumbar spine is seen. No acute vertebral body compression fracture. Other: Small umbilical hernia containing fat only. No significant inguinal hernia. IMPRESSION: 1. Nonspecific mild bilateral perinephric fat stranding. No obstructing stones or hydronephrosis. Vas cular calcifications versus tiny nonobstructing bilateral renal calculi. Normal-appearing urinary harish dder. 2. Small hiatal hernia with questionable proximal gastric wall thickening, which may be due to underd istention. Low-grade gastritis cannot be excluded. 3. No small bowel or colon wall thickening. No abscess collection. No free fluid or free air. No significant discrepancies from preliminary reading. Reviewed by: Sushil Minor MD on 01/01/2023 8:11 AM PDT Approved by: Sushil Minor MD on 01/01/2023 8:11 AM PDT Station ID: [id number]
[2023-01-01 08:20] VITALS: BP 185/75
== END 2023-01-01 07:50 | disposition home or self-care (01) ==
LOC: EDUNIT# → ED 03:51
DX: R11.2 Nausea with vomiting, unspecified (principal); R19.7 Diarrhea, unspecified; R94.4 Abnormal results of kidney function studies
CPT/HCPCS: 36415; 80053; 81001; 81003; 83690; 85025; 87086; 96361; 96374; 99284

== ENCOUNTER 2023-01-02 04:32 | Outpatient (CLI) | payer MEDICARE | END 2023-01-02 16:54 | disposition EMS.NT | LOC: EMS 04:32 | DX: Z03.89 Encounter for observation for other suspected diseases and conditions ruled out (principal) ==

== ENCOUNTER 2023-01-27 08:33 | Outpatient (CLI) | payer MEDICARE ==
[2023-01-27 14:33] LABS: BASOPHILS # (AUTO) 0.1 10^3/uL (0.0-0.1); BASOPHILS % (AUTO) 1.3 %; EOSINOPHILS # (AUTO) 0.1 10^3/uL (0.0-0.7); EOSINOPHILS % (AUTO) 1.8 %; HCT - HEMATOCRIT 34.5 % (42.0-52.0); HGB - HEMOGLOBIN 10.7 g/dL (14.0-18.0); LYMPHOCYTES # (AUTO) 1.2 10^3/uL (1.5-3.5); MEAN CORPUSCULAR HEMOGLOBIN 29.9 pg (27.0-31.0); MEAN CORPUSCULAR VOLUME 96.4 fL (80.0-94.0); MEAN PLATELET VOLUME 10.5 fL (7.4-11.4); MONOCYTES # (AUTO) 0.5 10^3/uL (0.0-1.0); MONOCYTES % (AUTO) 8.9 %; NEUTROPHILS % (AUTO) 67.7 %; PLT - PLATELET COUNT 200 10^3/uL (130-450); RED BLOOD COUNT 3.58 10^6/uL (4.70-6.10); RED CELL DISTRIBUTION WIDTH 14.7 % (12.0-15.0)
[2023-01-27 14:59] LABS: ALBUMIN 3.8 g/dL (3.2-5.5); ALBUMIN/GLOBULIN RATIO 1.4 (1.0-2.2); ALKALINE PHOSPHATASE 77 IU/L (42-121); ALT ALANINE AMINOTRANSFERASE 16 IU/L (10-60); AST ASPARTATE AMINOTRANSFERASE 16 IU/L (10-42); BILIRUBIN,TOTAL 0.6 mg/dL (0.2-1.0); BUN - BLOOD UREA NITROGEN 29 mg/dL (6-20); CALCIUM 8.8 mg/dL (8.5-10.3); CARBON DIOXIDE - CO2 24 mmol/L (21-32); CHLORIDE 111 mmol/L (101-111); CHOLESTEROL 205 mg/dL; CREATININE 2.3 mg/dL (0.6-1.2); GFR - MDRD 28 (>89); GLUCOSE 171 mg/dL (70-100); HDL CHOLESTEROL 69 mg/dL; LDL CHOLESTEROL,CALCULATED 119 mg/dL; LDL/HDL RATIO 1.7 (<3.6); POTASSIUM 4.2 mmol/L (3.5-5.0); SODIUM 142 mmol/L (135-145); TOTAL PROTEIN 6.6 g/dL (6.7-8.2); TRIGLYCERIDES 84 mg/dL; VLDL CHOLESTEROL 17 mg/dL
[2023-01-27 20:01] LABS: ESTIMATED AVERAGE GLUCOSE 163 mg/dL (70-100); HEMOGLOBIN A1c% 7.3 % (4.27-6.07)
== END 2023-01-27 08:34 | disposition home or self-care (01) ==
LOC: LAB.S 08:33
PROVIDERS: ATTEND Registered Nurse
DX: E78.5 Hyperlipidemia, unspecified (principal); E11.9 Type 2 diabetes mellitus without complications; Z79.899 Other long term (current) drug therapy
CPT/HCPCS: 36415; 80053; 80061; 83036; 83721; 85025

== ENCOUNTER 2023-01-30 11:33 | Outpatient (CLI) | payer MEDICARE | END 2023-01-30 23:59 | disposition EMS.NT | LOC: EMS 11:33 | DX: Z03.89 Encounter for observation for other suspected diseases and conditions ruled out (principal) ==

== ENCOUNTER 2023-02-03 13:57 | Outpatient (CLI) | payer MEDICARE | END 2023-02-03 13:58 | disposition left against medical advice (07) | LOC: EMS 13:57 | DX: R53.1 Weakness (principal); R26.89 Other abnormalities of gait and mobility; R60.0 Localized edema ==

== ENCOUNTER 2023-02-03 16:35 | Outpatient (CLI) | payer MEDICARE | END 2023-02-03 23:59 | disposition critical access hospital (66) | LOC: EMS 16:35 | DX: R53.1 Weakness (principal) | CPT/HCPCS: A0425; A0429 ==

== ENCOUNTER 2023-02-03 17:20 | Emergency (ER) | payer MEDICARE ==
--- NOTE | 2023-02-03 17:28 | ED Physician Documentation ---
PD HPI Fall - Stated complaint Stated Complaint: WEAKNESS - History obtained from History obtained from: Patient, EMS - Additional information Additional information: 77-year-old gentleman with history of dementia who lives with his daughter, peripheral vascular disease and diabetes with multiple issues with his legs and feet has had for or so falls over the last month or so. States his legs are weak and has trouble lifting up his legs. No injuries in the falls. No back pain. No clear head injury. He has been going downhill lately with weakness and his daughter is actually arranged for him to go to [facility] when he can move in which should be shortly. He presents today because it sounds like the daughter is no longer able to take care of him because of his weakness. PD PAST MEDICAL HISTORY - Past Medical History Cardiovascular: Peripheral Vascular Disease, Atrial fibrillation Respiratory: Asthma, Sleep apnea, CPAP use Neuro: Peripheral neuropathy, Tremors Endocrine/Autoimmune: Type 2 diabetes GI: Hiatal hernia : Benign prostate hypertrophy Psych: Depression Derm: Eczema - Past Surgical History General: Colonoscopy, Other HEENT: Tonsil/Adenoidectomy - Present Medications Home Medications: Ambulatory Orders Medication Instructions Recorded Confirmed Aspirin [Bobo] 0.5 tab PO DAILY 02/05/21 08/13/22 B-Complex with Vitamin C [Super B 1 tab PO DAILY 02/05/21 08/13/22 Complex-Vitamin C] Carvedilol [Coreg] 1 tab PO QPM 02/05/21 08/13/22 Carvedilol [Coreg] 2 tab PO QDBREAKFAST 02/05/21 08/13/22 Cholecalciferol [Vitamin D3] 1,000 units PO DAILY 02/05/21 08/13/22 Glimepiride 1 mg PO BID 02/05/21 08/13/22 Glucosamine/D3/Boswellia Lucie 3 tab PO DAILY 02/05/21 08/13/22 [Glucosamine Complex-Vit D3 Cpt] Insulin Glargine [Lantus Solostar] 30 - 32 units SQ DAILY 02/05/21 08/13/22 Levocetirizine Dihydrochloride 1 tab PO DAILY 02/05/21 08/13/22 Lisinopril/Hydrochlorothiazide 2 tab PO DAILY 02/05/21 08/13/22 [Zestoretic 20-12.5 mg Tablet] Lovastatin 2 tab PO QPM 02/05/21 08/13/22 Metformin HCl [Glucophage] 1 tab PO QDBREAKFAST 02/05/21 08/13/22 Mometasone Furoate/Dimethicone 1 applic TOP BID PRN 02/05/21 08/13/22 [Quinixil 0.1% Cream-5% Crm Kit] Mupirocin 2% Oint [Bactroban 2% 1 applic TOP DAILY PRN 02/05/21 10/03/21 Oint] Tamsulosin HCl [Flomax] 2 cap PO DAILY 02/05/21 08/13/22 Amox/Clav 875/125 [Augmentin 1 each PO Q12H #20 tablet 08/06/21 08/13/22 875/125 Tab] Amox/Clav 875/125 [Augmentin 1 each PO Q12H 7 Days #14 tablet 09/28/22 875/125 Tab] levoFLOXacin [Levofloxacin] 750 mg PO DAILY 7 Days #7 tablet 10/02/22 levoFLOXacin [Levofloxacin] 500 mg PO DAILY 7 Days #7 tablet 10/09/22 Ondansetron Odt [Zofran Odt] 4 mg TL Q6H PRN #10 tablet 01/01/23 - Allergies Allergies/Adverse Reactions: Allergies Allergy/AdvReac Type Severity Reaction Status Date / Time No Known Drug Allergies Allergy Verified 01/01/23 04:02 PD ED PE NORMAL - Vitals Vital signs reviewed: Yes - General General: No acute distress, Other (Alert and oriented to person and place but not time. Reasonable historian for events.) - HEENT HEENT: PERRL, EOMI - Neck Neck: Supple, no meningeal sign, No bony TTP, No bruit - Cardiac Cardiac: RRR, No murmur - Respiratory Respiratory: No respiratory distress, Clear bilaterally - Abdomen Abdomen: Normal bowel sounds, Soft, Non tender, Other (Easily reducible umbilical hernia) - Back Back: No CVA TTP, No spinal TTP - Derm Derm: Normal color, Warm and dry - Extremities Extremities: Other (Venous stasis changes of right greater than left legs, multiple surgically absent toes. No obvious active infected wounds.) - Neuro Neuro: critical power technician 2-12 intact, Other (Difficulty raising either leg off the bed. Good upper extremity strength.) Eye Opening: Spontaneous Motor: Obeys Commands Verbal: Confused GCS Score: 14 Results - Vitals Vitals: Vital Signs - 24 hr 02/03/23 02/03/23 17:54 18:34 Temperature 36.4 C L Heart Rate 69 65 Respiratory 20 18 Rate Blood Pressure 190/94 H 189/88 H O2 Saturation 96 99 Oxygen O2 Source Room air - EKG (time done) 1806 EKG releavant findings:: EKG personally interpreted by author of this note. Relevant findings are: Rate: Rate (enter#) (71) Rhythm: NSR [place]: Normal Intervals: Normal [place], RBBB Ischemia: Normal ST segments Computer interpretation: No: Disagree with computer (Computer calling short AK interval, ) - Labs Labs: Laboratory Tests 02/03/23 02/03/23 02/03/23 17:50 17:50 17:50 WBC 6.5 RBC 3.53 L Hgb 10.5 L Hct 33.4 L MCV 94.6 H MCH 29.7 MCHC 31.4 L RDW 15.1 H Plt Count 215 MPV 10.3 Neut # (Auto) 4.6 Lymph # (Auto) 1.2 L [place] # (Auto) 0.5 Eos # (Auto) 0.1 Baso # (Auto) 0.1 Absolute Nucleated RBC 0.00 Nucleated RBC % 0.0 PT 10.9 INR 1.0 Sodium 139 Potassium 3.8 Chloride 112 H Carbon Dioxide 20 L Anion Gap 7.0 BUN 42 H Creatinine 2.3 H Estimated GFR (MDRD) 28 L Glucose 160 H Calcium 8.8 Phosphorus 3.7 Magnesium 2.0 Total Bilirubin 0.5 AST 13 ALT 12 Alkaline Phosphatase 64 Total Protein 6.2 L Albumin 3.6 Globulin 2.6 Albumin/Globulin Ratio 1.4 Urine Color Urine Clarity Urine pH Ur Specific [place] Urine Protein Urine Glucose (UA) Urine Ketones Urine Occult Blood Urine Nitrite Urine Bilirubin Urine Urobilinogen Ur Leukocyte Esterase Urine RBC Urine WBC Ur Squamous Epith Cells Urine Bacteria Ur Microscopic Review Urine Culture Comments 02/03/23 18:27 WBC RBC Hgb Hct MCV MCH MCHC RDW Plt Count MPV Neut # (Auto) Lymph # (Auto) [place] # (Auto) Eos # (Auto) Baso # (Auto) Absolute Nucleated RBC Nucleated RBC % PT INR Sodium Potassium Chloride Carbon Dioxide Anion Gap BUN Creatinine Estimated GFR (MDRD) Glucose Calcium Phosphorus Magnesium Total Bilirubin AST ALT Alkaline Phosphatase Total Protein Albumin Globulin Albumin/Globulin Ratio Urine Color YELLOW Urine Clarity CLEAR Urine pH 6.0 Ur Specific [place] 1.020 Urine Protein 100 H Urine Glucose (UA) 100 H Urine Ketones NEGATIVE Urine Occult Blood TRACE-INTA Urine Nitrite NEGATIVE Urine Bilirubin NEGATIVE Urine Urobilinogen 0.2 (NORMAL) Ur Leukocyte Esterase NEGATIVE Urine RBC 0-5 Urine WBC 0-3 Ur Squamous Epith Cells NONE SEEN Urine Bacteria None Seen Ur Microscopic Review INDICATED Urine Culture Comments NOT INDICATED - Rads (name of study) CT of the head demonstrates microvascular ischemic changes and age-related volume loss without acute findings. Relevant Findings:: Final report received, EMP independent interpretation of test CT of the cervical spine shows moderate to mild degenerative changes without acute findings. Relevant Findings:: Final report received, EMP independent interpretation of test Lumbar spine CT shows multiple levels of degenerative changes causing significant spinal stenosis. Relevant Findings:: Final report received, EMP independent interpretation of test PD Medical Decision Making - ED course ED course: 77-year-old gentleman with dementia and now weakness and cannot walk. Likely due to severe lumbar spinal stenosis. Labs are otherwise stable with chronic anemia, chronic renal insufficiency, no evidence of UTI. His daughter arrived at the bedside and said she could not take him home because of frequent falls. She plans to put him in [place] as soon as possible but needs some time to take care of issues. I discussed with her the results of her dad's diagnostic findings tonight including the severe spinal stenosis. She states that she would not intervene upon that surgically knowing that that may improve his quality of life. She requested that we keep him in the hospital tonight. I discussed with her that there was no admission criteria but she needs some time to take care of of the things that would help her get him into [facility]. She understands it may be a few days before he can go to [facility] at night was firm that he could not stay in the ER for a few days but we could keep him until midday tomorrow to give her just a bit of respite. She had basically refused to take him home. Departure - Departure Clinical Impression: Type 2 diabetes mellitus, Continuous dependence on cigarette smoking, Spinal stenosis Dementia Qualifiers: Dementia type: unspecified type Dementia severity: moderate Dementia behavioral or psychological symptom: without behavioral, psychotic, or mood disturbance or anxiety Qualified Code(s): F03.B0 - Unspecified dementia, moderate, without behavioral disturbance, psychotic disturbance, mood disturbance, and anxiety Condition: Stable Record reviewed to determine appropriate education?: Yes Instructions: ED Dementia Caregiver Support Comments: Roger was seen for weakness and worsening dementia. The weakness is due to spinal stenosis and he might be a surgical candidate, if you reconsider surgery please follow-up with the spine surgeon as soon as possible as that may help with his quality of life and his incontinence.
[2023-02-03 17:58] LABS: BASOPHILS # (AUTO) 0.1 10^3/uL (0.0-0.1); BASOPHILS % (AUTO) 1.1 %; EOSINOPHILS # (AUTO) 0.1 10^3/uL (0.0-0.7); EOSINOPHILS % (AUTO) 1.4 %; HCT - HEMATOCRIT 33.4 % (42.0-52.0); HGB - HEMOGLOBIN 10.5 g/dL (14.0-18.0); LYMPHOCYTES # (AUTO) 1.2 10^3/uL (1.5-3.5); LYMPHOCYTES % (AUTO) 18.5 %; MEAN CORPUSCULAR HEMOGLOBIN 29.7 pg (27.0-31.0); MEAN CORPUSCULAR HGB CONC 31.4 g/dL (32.0-36.0); MEAN CORPUSCULAR VOLUME 94.6 fL (80.0-94.0); MEAN PLATELET VOLUME 10.3 fL (7.4-11.4); MONOCYTES # (AUTO) 0.5 10^3/uL (0.0-1.0); MONOCYTES % (AUTO) 7.8 %; NEUTROPHILS # (AUTO) 4.6 10^3/uL (1.5-6.6); NEUTROPHILS % (AUTO) 70.9 %; PLT - PLATELET COUNT 215 10^3/uL (130-450); RED BLOOD COUNT 3.53 10^6/uL (4.70-6.10); RED CELL DISTRIBUTION WIDTH 15.1 % (12.0-15.0); WHITE BLOOD COUNT 6.5 x10^3/uL (4.8-10.8)
[2023-02-03 18:04] LABS: PT - PROTHROMBIN TIME 10.9 secs (9.9-12.6)
[2023-02-03 18:12] LABS: ALBUMIN 3.6 g/dL (3.2-5.5); ALBUMIN/GLOBULIN RATIO 1.4 (1.0-2.2); BILIRUBIN,TOTAL 0.5 mg/dL (0.2-1.0); CALCIUM 8.8 mg/dL (8.5-10.3); CREATININE 2.3 mg/dL (0.6-1.2); PHOSPHORUS 3.7 mg/dL (2.5-4.6); POTASSIUM 3.8 mmol/L (3.5-5.0); TOTAL PROTEIN 6.2 g/dL (6.7-8.2)
[2023-02-03 18:42] LABS: BILIRUBIN,URINE NEGATIVE (NEGATIVE); GLUCOSE, URINE (UA) 100 mg/dL (NEGATIVE); KETONES,URINE (UA) NEGATIVE (NEGATIVE); LEUKOCYTE ESTERASE, URINE NEGATIVE (NEGATIVE); NITRITE,URINE NEGATIVE (NEGATIVE); OCCULT BLOOD,URINE TRACE-INTA (NEGATIVE); PROTEIN,URINE 100 mg/dL (NEGATIVE); UROBILINOGEN,URINE 0.2 (NORMAL) E.U./dL (NORMAL)
[2023-02-03 18:43] LABS: CLARITY,URINE CLEAR (CLEAR)
--- NOTE | 2023-02-03 18:44 | CT Report ---
PROCEDURE: HEAD WO INDICATIONS: falls, leg weak TECHNIQUE: Noncontrast 4.5 mm thick angled axial sections acquired from the foramen magnum to the vertex. For r adiation dose reduction, the following was used: automated exposure control, adjustment of mA and/or kV according to patient size. COMPARISON: 01/01/2023. FINDINGS: Image quality: Excellent. CSF spaces: Basal cisterns are patent. No extra-axial fluid collections. Ventricles are normal in size and shape. Brain: No midline shift. No intracranial masses or hemorrhage. Jimenez-white matter interface is norm al. Subcortical and periventricular hypodensities are consistent with microvascular ischemic disease and age-related cerebral volume loss. Skull and face: Calvarium and visualized facial bones are intact, without suspicious lesions. Sinuses: Visualized sinuses and mastoids are clear. IMPRESSION: 1. No acute intracranial abnormality. 2. Microvascular ischemic disease and age-related cerebral volume loss. Reviewed by: Rivera Aaron on 02/03/2023 5:43 PM IVONNE Approved by: Rivera Aaron on 02/03/2023 5:43 PM AKMATTHEW Station ID: [id number]
--- NOTE | 2023-02-03 18:45 | CT Report ---
PROCEDURE: CERVICAL SPINE WO INDICATIONS: falls, leg weak TECHNIQUE: Noncontrast 3 mm thick sections acquired from the skull base to the T4 level. Sagittal and coronal r eformats were then constructed. For radiation dose reduction, the following was used: automated exp osure control, adjustment of mA and/or kV according to patient size. COMPARISON: January 01, 2023 FINDINGS: Image quality: Good Bones: Mild to moderate degenerative changes. Vertebral body heights are well-maintained. No traumati c subluxation. Soft tissues: Vascular calcifications. No pathologic prevertebral soft tissue swelling. IMPRESSION: Mild to moderate degenerative changes. No acute fracture or traumatic subluxation of the cervical spi ne. If there is high concern for further derangement, consider MRI evaluation. Reviewed by: Kvng Espinoza MD on 02/03/2023 6:44 PM PDT Approved by: Kvng Espinoza MD on 02/03/2023 6:44 PM PDT Station ID: [id number]
--- NOTE | 2023-02-03 18:54 | CT Report ---
PROCEDURE: LUMBAR SPINE WO INDICATIONS: falls, leg weak TECHNIQUE: Noncontrast 3 mm thick sections acquired from the T12 level to the sacrum. Sagittal and coronal refo rmats were constructed. For radiation dose reduction, the following was used: automated exposure co ntrol, adjustment of mA and/or kV according to patient size. COMPARISON: None. FINDINGS: Image quality: Excellent. Bones: There is normal bony alignment. No acute vertebral body compression fractures. No suspiciou s lytic or blastic bony lesions. Central spinal caliber is of normal overall caliber. No pars defec ts. T10-T11: Diffuse disc bulge, facet hypertrophy, and ligamentum flavum hypertrophy cause severe centra l canal stenosis. T11-T12: Diffuse disc bulge and facet hypertrophy. Mild bilateral foraminal stenosis. The central can al is patent. T12-L1: Endplate degenerative changes. No foraminal or central canal stenosis. L1-L2: Disc space narrowing and endplate degenerative changes with disc osteophytes and facet hype rtrophy cause severe bilateral foraminal stenosis and moderate to severe central canal stenosis. L2-L3: Disc space narrowing and endplate degenerative changes with disc osteophytes and facet hype rtrophy cause mild bilateral foraminal stenosis. The central canal has severe stenosis. L3-L4: Disc space narrowing and endplate degenerative changes with disc osteophytes and facet hyper trophy cause moderate bilateral foraminal stenosis and severe central canal stenosis. L4-L5: Disc space narrowing and endplate degenerative changes with disc osteophytes and facet hyper trophy cause mild bilateral foraminal stenosis. The central canal has mild stenosis. L5-S1: Disc space narrowing and endplate degenerative changes with disc osteophytes and facet hyper trophy cause moderate left and mild right foraminal stenosis. The central canal is patent. Soft tissues: No retroperitoneal masses or hematomas. Visualized aorta is normal in caliber. IMPRESSION: 1. Multilevel degenerative disc disease causing apparent foraminal and central canal stenosis as deta iled above. Central canal stenosis appears severe at multiple levels, however MRI would be better for evaluation of the disks and canal which are not well visualized with CT. 2. No acute traumatic abnormality of the lumbar spine. Reviewed by: Rivera Aaron on 02/03/2023 5:53 PM IVONNE Approved by: Rivera Aaron on 02/03/2023 5:53 PM IVONNE Station ID: [id number]
[2023-02-03 19:02] LABS: BACTERIA,URINE None Seen /HPF (None Seen); RBC,URINE 0-5 /HPF (0-5); SQUAMOUS EPITHELIAL CELL,UR NONE SEEN (<= Few); WBC,URINE 0-3 /HPF (0-3)
--- NOTE | 2023-02-04 12:47 | ED Physician Documentation ---
ED Addendum - Addendum Addendum: Patient received in signout at shift change.Patient is awaiting evaluation by social work and determination by family if they feel they can take him home safely. This morning I saw the patient and he denies any current complaints Or needs. 02/04/23 12:46 Social work has seen the patient and also spoken with the patient's daughter. She is planning on coming here to pick him up and they are planning to to her [place] this afternoon. Patient is open to receiving caregivers in the home and Elda sanders psychiatric social worker has given him a stack of resources For him and his daughter to go through. Departure - Departure Disposition: Home, Self Care Clinical Impression: Type 2 diabetes mellitus, Continuous dependence on cigarette smoking, Spinal stenosis Dementia Qualifiers: Dementia type: unspecified type Dementia severity: moderate Dementia behavioral or psychological symptom: without behavioral, psychotic, or mood disturbance or anxiety Qualified Code(s): F03.B0 - Unspecified dementia, moderate, without behavioral disturbance, psychotic disturbance, mood disturbance, and anxiety Condition: Stable Instructions: ED Dementia Caregiver Support Comments: Roger was seen for weakness and worsening dementia. The weakness is due to spinal stenosis and he might be a surgical candidate, if you reconsider surgery please follow-up with the spine surgeon as soon as possible as that may help with his quality of life and his incontinence.
[2023-02-04 14:03] VITALS: BP 191/91
== END 2023-02-04 14:02 | disposition home or self-care (01) ==
LOC: EDUNIT# → ED 17:20
DX: M48.061 Spinal stenosis, lumbar region without neurogenic claudication (principal); F03.B0 Unspecified dementia, moderate, without behavioral disturbance, psychotic disturbance, mood disturbance, and anxiety; E11.9 Type 2 diabetes mellitus without complications; Z79.4 Long term (current) use of insulin; Z79.84 Long term (current) use of oral hypoglycemic drugs; F17.200 Nicotine dependence, unspecified, uncomplicated; Z74.1 Need for assistance with personal care
CPT/HCPCS: 36415; 80053; 81001; 81003; 83735; 84100; 85025; 85610; 87086; 93005; 99284

== ENCOUNTER 2023-02-23 21:26 | Outpatient (CLI) | payer MEDICARE | END 2023-02-23 23:59 | disposition EMS.NT | LOC: EMS 21:26 | DX: Z03.89 Encounter for observation for other suspected diseases and conditions ruled out (principal) ==

== ENCOUNTER 2023-02-24 14:39 | Outpatient (CLI) | payer MEDICARE | END 2023-02-24 23:59 | disposition critical access hospital (66) | LOC: EMS 14:39 | DX: R53.1 Weakness (principal); R53.83 Other fatigue | CPT/HCPCS: A0425; A0429 ==

== ENCOUNTER 2023-02-24 15:29 | Emergency (ER) | payer MEDICARE ==
--- NOTE | 2023-02-24 15:38 | ED Physician Documentation ---
PD HPI Fall - Stated complaint Stated Complaint: FALL - History obtained from History obtained from: Patient, EMS - Additional information Additional information: 77-year-old gentleman with history of diabetes, mild dementia, peripheral vasc ular disease presents after a fall. He falls frequently. Reportedly EMS had gone out last night for a fall with lift assist. Today he fell again. States he was either getting up from or getting into his chair and just kind of crumpled down. There is no clear injury but he is complaining of a lot of neck pain. He was too weak to get up off the floor on his own and laid on the floor for about 45 minutes. Of note I had seen him earlier this month. He was very weak and found to have severe spinal stenosis. His daughter did not think he was a surgical candidate and at that time the plan was to put him into [facility]. PD PAST MEDICAL HISTORY - Past Medical History Cardiovascular: Peripheral Vascular Disease, Atrial fibrillation Respiratory: Asthma, Sleep apnea, CPAP use Neuro: Peripheral neuropathy, Tremors Endocrine/Autoimmune: Type 2 diabetes GI: Hiatal hernia : Benign prostate hypertrophy Psych: Depression Derm: Eczema - Past Surgical History General: Colonoscopy, Other HEENT: Tonsil/Adenoidectomy - Present Medications Home Medications: Ambulatory Orders Medication Instructions Recorded Confirmed Carvedilol [Coreg] 1 tab PO QPM 02/05/21 02/24/23 Carvedilol [Coreg] 2 tab PO QDBREAKFAST 02/05/21 02/24/23 Glimepiride 1 mg PO BID 02/05/21 02/24/23 Levocetirizine Dihydrochloride 1 tab PO DAILY 02/05/21 02/24/23 Lisinopril/Hydrochlorothiazide 2 tab PO DAILY 02/05/21 02/24/23 [Zestoretic 20-12.5 mg Tablet] Metformin HCl [Glucophage] 2 tab PO QDBREAKFAST 02/05/21 02/03/23 Tamsulosin HCl [Flomax] 1 cap PO BID 02/05/21 02/24/23 Clopidogrel [Plavix] 75 mg PO DAILY 02/03/23 02/24/23 Gabapentin [Neurontin] 800 mg PO DAILY 02/03/23 02/24/23 HYDROcod/ACETAM 5/325 [[place] 5/325] 1 tablet PO Q4HR PRN 02/03/23 02/03/23 dilTIAZem HCL [Diltiazem 24Hr ER] 120 mg PO DAILY 02/03/23 02/24/23 metFORMIN [Glucophage] 850 mg PO QPM 02/03/23 02/24/23 - Allergies Allergies/Adverse Reactions: Allergies Allergy/AdvReac Type Severity Reaction Status Date / Time No Known Drug Allergies Allergy Verified 01/01/23 04:02 - Social History Does the pt smoke?: Yes Smoking Status: Current every day smoker PD ED PE NORMAL - Vitals Vital signs reviewed: Yes - General General: Alert and oriented X 3, No acute distress - HEENT HEENT: PERRL, EOMI, Other (Dry mucous membranes) - Neck Neck: Other (He is quite tender in the mid and lower cervical spine) - Cardiac Cardiac: RRR, No murmur - Respiratory Respiratory: No respiratory distress, Clear bilaterally - Abdomen Abdomen: Normal bowel sounds, Soft, Non tender - Back Back: No CVA TTP, No spinal TTP - Derm Derm: Normal color, Warm and dry, Other (Very mild stage I pressure ulcer in the gluteal crease.) - Extremities Extremities: Other (There is a noninfected shallow stage I pressure ulcer on the dorsum of the right great toe. The second and third toe of the right foot are surgically absent. There is bruising of the third toe of the left foot and less so of the second toe. It is not tender, but I suspect he has neuropathy. ) - Neuro Neuro: Alert and oriented X 3, Normal speech Eye Opening: Spontaneous Motor: Obeys Commands Verbal: Oriented GCS Score: 15 Results - Vitals Vitals: Vital Signs - 24 hr 02/24/23 02/24/23 02/24/23 15:35 15:49 16:12 Temperature 36 C L Heart Rate 79 78 66 Respiratory 16 22 20 Rate Blood Pressure 148/99 H 148/99 H 185/74 H O2 Saturation 98 98 98 02/24/23 16:56 Temperature Heart Rate 95 Respiratory 20 Rate Blood Pressure 164/72 H O2 Saturation 96 Oxygen O2 Source Room air - EKG (time done) 1606 EKG releavant findings:: EKG personally interpreted by author of this note. Relevant findings are: Rate: Rate (enter#) (76) Rhythm: NSR Intervals: RBBB, Other (LAFB) QRS: Normal Ischemia: Normal ST segments Compare to prior EKG: Changed from prior EKG (The left anterior fascicular block has worsened since most recent EKG dated February 03 of this year) Computer interpretation: Agree with computer - Labs Labs: Laboratory Tests 02/24/23 02/24/23 02/24/23 15:45 15:45 15:45 WBC 9.2 RBC 3.91 L Hgb 11.9 L Hct 36.4 L MCV 93.1 MCH 30.4 MCHC 32.7 RDW 14.8 Plt Count 259 MPV 10.1 Neut # (Auto) 7.6 H Lymph # (Auto) 0.9 L [place] # (Auto) 0.6 Eos # (Auto) 0.0 Baso # (Auto) 0.1 Absolute Nucleated RBC 0.00 Nucleated RBC % 0.0 Sodium 142 Potassium 3.6 Chloride 110 Carbon Dioxide 24 Anion Gap 8.0 BUN 40 H Creatinine 2.7 H Estimated GFR (MDRD) 23 L Glucose 58 L* POC Whole Bld Glucose Lactic Acid 2.5 H Calcium 9.8 Total Bilirubin 0.4 AST 12 ALT 13 Alkaline Phosphatase 88 Total Creatine Kinase 187 Total Protein 6.7 Albumin 4.3 Globulin 2.4 Albumin/Globulin Ratio 1.8 Urine Color Urine Clarity Urine pH Ur Specific [place] Urine Protein Urine Glucose (UA) Urine Ketones Urine Occult Blood Urine Nitrite Urine Bilirubin Urine Urobilinogen Ur Leukocyte Esterase Urine RBC Urine WBC Ur Squamous Epith Cells Urine Bacteria Urine Casts Urine Culture Comments 02/24/23 02/24/23 16:40 17:19 WBC RBC Hgb Hct MCV MCH MCHC RDW Plt Count MPV Neut # (Auto) Lymph # (Auto) [place] # (Auto) Eos # (Auto) Baso # (Auto) Absolute Nucleated RBC Nucleated RBC % Sodium Potassium Chloride Carbon Dioxide Anion Gap BUN Creatinine Estimated GFR (MDRD) Glucose POC Whole Bld Glucose 154 H Lactic Acid Calcium Total Bilirubin AST ALT Alkaline Phosphatase Total Creatine Kinase Total Protein Albumin Globulin Albumin/Globulin Ratio Urine Color YELLOW Urine Clarity CLEAR Urine pH 5.0 Ur Specific [place] 1.025 Urine Protein >=300 H Urine Glucose (UA) 250 H Urine Ketones NEGATIVE Urine Occult Blood MODERATE H Urine Nitrite NEGATIVE Urine Bilirubin NEGATIVE Urine Urobilinogen 0.2 (NORMAL) Ur Leukocyte Esterase NEGATIVE Urine RBC 0-5 Urine WBC 0-3 Ur Squamous Epith Cells NONE SEEN Urine Bacteria Rare Urine Casts 0-2 Granular Casts Urine Culture Comments NOT INDICATED - Rads (name of study) CT of the head, C-spine, and x-rays of both feet are negative for traumatic findings. Relevant Findings:: Final report received, EMP independent interpretation of test PD Medical Decision Making - ED course ED course: 77-year-old gentleman who lives with daughter. The plan was to go to assisted living last month or earlier this month per the daughter who gave me an independent history. It fell through because that was not a high enough level of care for him but she is working hard on placement. He fell twice while she was out of the house in the last 24 hours but does not seem to have any significant injuries. His blood sugar was modestly low here, he was fed and given half an amp of D50 and it stayed up after that. No signs of infections. Departure - Departure Disposition: 01 Home, Self Care Clinical Impression: Dementia, Fall, Neck pain, Hypoglycemia Condition: Good Record reviewed to determine appropriate education?: Yes Instructions: ED Dementia Caregiver Support Comments: Continue your excellent efforts to get Roger placed in a SNF which is appropriate. Return for new or worsening symptoms. Forms: Activity restrictions
[2023-02-24] MEDS ORDERED: MORPHINE 2 MG/ML CARPUJECT IVP STA (15:40)
[2023-02-24 15:55] LABS: BASOPHILS # (AUTO) 0.1 10^3/uL (0.0-0.1); BASOPHILS % (AUTO) 1.1 %; EOSINOPHILS % (AUTO) 0.1 %; HCT - HEMATOCRIT 36.4 % (42.0-52.0); HGB - HEMOGLOBIN 11.9 g/dL (14.0-18.0); LYMPHOCYTES # (AUTO) 0.9 10^3/uL (1.5-3.5); LYMPHOCYTES % (AUTO) 9.9 %; MEAN CORPUSCULAR HEMOGLOBIN 30.4 pg (27.0-31.0); MEAN CORPUSCULAR HGB CONC 32.7 g/dL (32.0-36.0); MEAN CORPUSCULAR VOLUME 93.1 fL (80.0-94.0); MEAN PLATELET VOLUME 10.1 fL (7.4-11.4); MONOCYTES # (AUTO) 0.6 10^3/uL (0.0-1.0); MONOCYTES % (AUTO) 6.5 %; NEUTROPHILS # (AUTO) 7.6 10^3/uL (1.5-6.6); NEUTROPHILS % (AUTO) 82.2 %; PLT - PLATELET COUNT 259 10^3/uL (130-450); RED BLOOD COUNT 3.91 10^6/uL (4.70-6.10); RED CELL DISTRIBUTION WIDTH 14.8 % (12.0-15.0); WHITE BLOOD COUNT 9.2 x10^3/uL (4.8-10.8)
[2023-02-24 16:17] LABS: ALBUMIN 4.3 g/dL (3.2-5.5)
--- NOTE | 2023-02-24 16:18 | CT Report ---
PROCEDURE: HEAD WO INDICATIONS: Weakness neck pain, fall TECHNIQUE: Noncontrast 4.5 mm thick angled axial sections acquired from the foramen magnum to the vertex. For r adiation dose reduction, the following was used: automated exposure control, adjustment of mA and/or kV according to patient size. COMPARISON: 02/03/2023 FINDINGS: Image quality: Excellent. CSF spaces: Basal cisterns are patent. No extra-axial fluid collections. Ventricles are normal in size and shape. Probable incidental posterior fossa arachnoid cyst. Age-related volume loss and smal l vessel ischemic change. Stable findings. Brain: No midline shift. No intracranial masses or hemorrhage. Jimenez-white matter interface is norm al. Skull and face: Calvarium and visualized facial bones are intact, without suspicious lesions. Sinuses: Visualized sinuses and mastoids are clear. IMPRESSION: No acute intracranial abnormality. Reviewed by: Fabian Kidd MD on 02/24/2023 4:17 PM PDT Approved by: Fabian Kidd MD on 02/24/2023 4:17 PM PDT Station ID: [id number]
--- NOTE | 2023-02-24 16:20 | CT Report ---
PROCEDURE: CERVICAL SPINE WO INDICATIONS: Weakness neck pain, fall TECHNIQUE: Noncontrast 3 mm thick sections acquired from the skull base to the T4 level. Sagittal and coronal r eformats were then constructed. For radiation dose reduction, the following was used: automated exp osure control, adjustment of mA and/or kV according to patient size. COMPARISON: None. FINDINGS: Image quality: Excellent. Bones: No fractures or dislocations. Visualized superior ribs are intact. Cervical spondylitic hu ge. Bilateral uncovertebral joint osteophytes result in bilateral foraminal narrowing at C5-C6 and C6 -C7. There is multilevel facet arthropathy. Soft tissues: Prevertebral soft tissues are normal in thickness. No paravertebral hematomas. No ap ical pneumothoraces. IMPRESSION: 1. No acute cervical fracture or dislocation. 2. Cervical spondylosis. Reviewed by: Fabian Kidd MD on 02/24/2023 4:19 PM PDT Approved by: Fabian Kidd MD on 02/24/2023 4:19 PM PDT Station ID: [id number]
[2023-02-24 16:28] LABS: LACTIC ACID, VENOUS 2.5 mmol/L (0.5-2.2)
[2023-02-24] MEDS ORDERED: DEXTROSE 10% 250 ML IV STA (16:35)
[2023-02-24] MEDS ORDERED: DEXTROSE 50% ABBOJECT 25 GM/50 ML SYRINGE IVP STA (16:36)
[2023-02-24 16:39] LABS: ALBUMIN/GLOBULIN RATIO 1.8 (1.0-2.2); BILIRUBIN,TOTAL 0.4 mg/dL (0.2-1.0); CALCIUM 9.8 mg/dL (8.5-10.3); CREATININE 2.7 mg/dL (0.6-1.3); POTASSIUM 3.6 mmol/L (3.5-4.5); TOTAL PROTEIN 6.7 g/dL (6.4-8.9)
[2023-02-24] MEDS ORDERED: DEXTROSE 50% ABBOJECT 25 GM/50 ML SYRINGE ONE (16:42)
[2023-02-24] MEDS ORDERED: DEXTROSE 10% 0 ML IV ONE (16:52)
--- NOTE | 2023-02-24 16:54 | XRAY Report ---
PROCEDURE: Foot 3 View LT INDICATIONS: FOOT INJ TECHNIQUE: Left views of the foot were acquired. COMPARISON: 07/15/2021 FINDINGS: Bones: Interval amputation of the fourth toe at the base of the proximal phalanx. Diffuse osteopenia . No definite plain film evidence of osteomyelitis. No acute fracture or dislocation. Soft tissues: No suspicious soft tissue calcifications or masses. Extensive small vessel calcifica tions are typically seen with long-standing diabetes. IMPRESSION: No acute bony abnormality. Diffuse osteopenia. If suspect osteomyelitis, recommend foot MRI with and without contrast. Reviewed by: Fabian Kidd MD on 02/24/2023 4:53 PM PDT Approved by: Fabian Kidd MD on 02/24/2023 4:53 PM PDT Station ID: [id number]
--- NOTE | 2023-02-24 16:55 | XRAY Report ---
PROCEDURE: Foot 3 View RT INDICATIONS: foot inj TECHNIQUE: 3 views of the foot were acquired. COMPARISON: 10/02/2022 FINDINGS: Bones: Long-standing amputation of the second toe at the base of the proximal phalanx. Interval ampu tation of the third toe at the mid shaft of the proximal phalanx. No acute fractures or dislocations. No plain film evidence of osteomyelitis. Soft tissues: No suspicious soft tissue calcifications or masses. Small vessel calcifications typi chandler indicate long-standing diabetes. IMPRESSION: 1. No acute bony abnormality. Comment: If there is clinical suspicion of osteomyelitis, recommend foot MRI with and without contras t. Reviewed by: Fabian Kidd MD on 02/24/2023 4:54 PM PDT Approved by: Fabian Kidd MD on 02/24/2023 4:54 PM PDT Station ID: [id number]
[2023-02-24 17:00] LABS: BILIRUBIN,URINE NEGATIVE (NEGATIVE); GLUCOSE, URINE (UA) 250 mg/dL (NEGATIVE); KETONES,URINE (UA) NEGATIVE (NEGATIVE); LEUKOCYTE ESTERASE, URINE NEGATIVE (NEGATIVE); NITRITE,URINE NEGATIVE (NEGATIVE); OCCULT BLOOD,URINE MODERATE (NEGATIVE); PROTEIN,URINE >=300 mg/dL (NEGATIVE); UROBILINOGEN,URINE 0.2 (NORMAL) E.U./dL (NORMAL)
[2023-02-24 17:06] LABS: CLARITY,URINE CLEAR (CLEAR)
[2023-02-24 17:13] LABS: BACTERIA,URINE Rare /HPF (None Seen); CASTS, URINE 0-2 Granular Casts /LPF; RBC,URINE 0-5 /HPF (0-5); SQUAMOUS EPITHELIAL CELL,UR NONE SEEN (<= Few); WBC,URINE 0-3 /HPF (0-3)
[2023-02-24 18:07] VITALS: BP 173/71
== END 2023-02-24 18:24 | disposition home or self-care (01) ==
LOC: EDUNIT# → ED 15:29
DX: M54.2 Cervicalgia (principal); F03.90 Unspecified dementia, unspecified severity, without behavioral disturbance, psychotic disturbance, mood disturbance, and anxiety; E11.649 Type 2 diabetes mellitus with hypoglycemia without coma; W18.30XA Fall on same level, unspecified, initial encounter; I48.91 Unspecified atrial fibrillation; Z91.81 History of falling; Z79.4 Long term (current) use of insulin; F17.200 Nicotine dependence, unspecified, uncomplicated
CPT/HCPCS: 36415; 80053; 81001; 82550; 83605; 85025; 87040; 87086; 93005; 96374; 96375; 99284

== ENCOUNTER 2023-03-01 07:29 | Outpatient (CLI) | payer MEDICARE | END 2023-03-01 23:59 | disposition EMS.NT | LOC: EMS 07:29 | DX: Z03.89 Encounter for observation for other suspected diseases and conditions ruled out (principal) ==

== ENCOUNTER 2023-03-04 19:28 | Outpatient (CLI) | payer MEDICARE | END 2023-03-04 23:59 | disposition left against medical advice (07) | LOC: EMS 19:28 | DX: S81.811A Laceration without foreign body, right lower leg, initial encounter (principal); W18.30XA Fall on same level, unspecified, initial encounter; Y92.008 Other place in unspecified non-institutional (private) residence as the place of occurrence of the external cause; Z79.01 Long term (current) use of anticoagulants ==